=== PATIENT | female | born 1990 | race Caucasian/White ===

== ENCOUNTER 2020-01-17 14:54 | Outpatient (CLI) | payer MEDICAID, SELFPAY ==
[2020-01-17 16:36] LABS: HCG Quant, Pregnancy 495 mIU/mL (1-3); TSH 10.24 uIU/mL (0.36-3.74)
[2020-01-17 16:56] LABS: FREE T4 0.81 ng/dL (0.76-1.46)
== END 2020-01-17 15:14 ==
PROVIDERS: PCP Family Medicine; Visit Provider Nurse Practitioner Family
DX: E03.9 Hypothyroidism, unspecified (principal); N92.5 Other specified irregular menstruation
CPT/HCPCS: 36415; 84439; 84443; 84702

== ENCOUNTER 2020-03-09 12:15 | Outpatient (REF) | payer MEDICAID, SELFPAY ==
--- NOTE | 2020-03-09 10:45 | PAPFT_PTH ---
PATIENT: Libby Joseph LOC: [facility] U#:[id number] AGE/SX: 30/F ROOM: RE03/09/[address]: Humberto Roberson RN : 1990 BED: DIS: 03/09/2020 SPEC #: [id number] RECD: 03/09/20 16:37 STATUS: ARNIE TAVAREZ #: [id number] TUNDE: 03/09/20 10:[address]: Humberto Roberson DEPT: [facility] Cytology RECD BY: Franco Bloom Tissues: 1 - CX/ENDOCX FOR PAP SMEARS Procedures: PAP THIN PREP/UVM Screening Comments: [id number]
[2020-03-09 21:24] LABS: *AMPHETAMINES SCREEN URINE Negative (Negative); *BARBITURATES SCREEN URINE Negative (Negative); *BENZODIAZEPINES SCREEN URINE Negative (Negative); Cannabinoids THC Negative (Negative); Cocaine Screen,Urine Negative (Negative); METHADONE URINE SCREEN Negative (Negative); OPIATES URINE SCREEN Negative (Negative)
[2020-03-09 21:27] LABS: Tricyclic Antidepressants Negative (Negative)
[2020-03-11 14:41] LABS: Chlamydia Result Negative (Negative); GC Result Negative (Negative)
[2020-03-13 00:41] LABS: Buprenorphine Negative; Norbuprenorphine Negative
== END 2020-03-09 12:35 ==
LOC: LBN 12:15
PROVIDERS: Visit Provider Advanced Practice Midwife
DX: Z34.91 Encounter for supervision of normal pregnancy, unspecified, first trimester (principal); Z11.3 Encounter for screening for infections with a predominantly sexual mode of transmission; Z12.4 Encounter for screening for malignant neoplasm of cervix; R87.615 Unsatisfactory cytologic smear of cervix
CPT/HCPCS: 80307; 87491; 87591; 88142; 87086

== ENCOUNTER 2020-03-10 09:39 | Outpatient (REF) | payer MEDICAID, SELFPAY ==
[2020-03-10 09:59] LABS: Glucose,1 Hr (Glucola) 167 mg/dL (80-140)
[2020-03-10 10:01] LABS: Abs Immature Grans 0.03 k/cumm (0.0-0.09); Absolute Basophil Count 0.02 k/cumm (0.0-0.2); Absolute Eosinophil Count 0.13 k/cumm (0.0-0.7); Absolute Lymphocyte Count 1.48 k/cumm (1.2-3.4); Absolute Monocyte Count 0.31 k/cumm (0.11-0.7); Basophils % 0.3; Eosinophils % 1.7; HCT 38.3 % (36.0-46.0); Immature Grans % 0.4 %; Lymphocytes % 19.3; Mean Corp. HGB Concentration 33.9 g/dL (32.0-36.0); Mean Corpuscular Hemoglobin 30.5 pg (27.0-33.0); Mean Corpuscular Volume 89.9 fL (80-95); Mean Platelet Volume 11.5 fL (8.0-11.0); Neutrophils % 74.3; Platelet Count 237 x1000/uL (130-400); RBC 4.26 m/cumm (4.00-5.20); RBC Distribution Width 13.3 % (11.7-14.6); White Blood Cell Count 7.67 k/cumm (4.4-10.8)
[2020-03-10 10:28] LABS: ALT 45 U/L (14-59); AST 26 U/L (15-37); Albumin 3.5 g/dL (3.4-5.0); Alkaline Phosphatase 75 U/L (46-116); Bilirubin, Direct 0.06 mg/dL (0.00-0.20); Bilirubin, Total 0.2 mg/dL (0.2-1.0); TSH (W/Ref FT4) 4.36 uIU/mL (0.36-3.74); Total Protein 6.9 g/dL (6.4-8.2); Uric Acid 4.2 mg/dL (2.6-6.0)
[2020-03-10 10:56] LABS: FREE T4 0.74 ng/dL (0.76-1.46)
[2020-03-11 09:59] LABS: Hepatitis B Surface Ag Negative (Negative)
[2020-03-11 10:26] LABS: HIV-1/2 Ag & Ab Screen Negative (Negative); Hepatitis C Ab w Rflx HCV PCR Negative (Negative)
[2020-03-12 10:04] LABS: Syphilis Total Ab w/Reflex Nonreactive (Nonreactive)
[2020-03-13 12:09] LABS: Varicella IgG Antibody Positive (See Note)
[2020-03-13 12:14] LABS: Rubella IgG Ab (UVM) Positive (See Note)
== END 2020-03-10 09:59 ==
LOC: LBN 09:39
PROVIDERS: Visit Provider Advanced Practice Midwife
DX: Z34.91 Encounter for supervision of normal pregnancy, unspecified, first trimester (principal); Z11.59 Encounter for screening for other viral diseases; Z11.4 Encounter for screening for human immunodeficiency virus [HIV]; Z01.84 Encounter for antibody response examination
CPT/HCPCS: 80076; 82950; 86787; 86803; 86850; 86900; 86901; 87340; 87389; 84439; 84443; 84550; 85025; 86762; 86780

== ENCOUNTER 2020-03-17 07:52 | Outpatient (CLI) | payer MEDICAID, SELFPAY ==
[2020-03-17 10:13] LABS: Glucose 1 Hour 179 mg/dL
[2020-03-17 11:59] LABS: Glucose 3 Hour 128 mg/dL
--- NOTE | 2020-03-24 15:28 | DIABASSESS_ITS ---
Spoke with Libby by phone. Received referral from for nutritional counseling for Gestational Diabetes. Her KEEGAN 09/29/20. Her 1 hour glucose test (50 g) on 03/10/20 was 167mg/dl, has a BMI>30 and family hx of IDDM. recommended testing her blood sugars QID which she has been doing and reports that all her sugars are within therapeutic ranges provided by [facility]. 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 She reports that she drinks soda and eats convenience foods frequently but will reduce intake and will start exercise such as walking daily. She is going to send flex o writer operator a food and blood sugar log in the next week. Will send Gestational Diet guide to home address and follow up on weekly basis. Plan: 1. Follow 2200 kcal diabetic meal plan 2. Continue to log meals and BS levels as recommended and forward to flex o writer operator 3. will incorporate daily exercise such as walking 4.will reduce intake of simple carbs
== END 2020-03-17 08:12 ==
PROVIDERS: Visit Provider Advanced Practice Midwife
DX: Z34.91 Encounter for supervision of normal pregnancy, unspecified, first trimester (principal)
CPT/HCPCS: 82951

== ENCOUNTER 2020-04-28 00:28 | Outpatient (CLI) | payer MEDICAID, SELFPAY ==
--- NOTE | 2020-04-28 10:15 | DI.US_ITS ---
EXAM: US OB 2-3 TRIMESTER W MOD CLINICAL HISTORY: routine pnc, supervision normal , Z34.82 TECHNIQUE: Ultrasound performed using standard protocol. COMPARISON: No exams were available for comparison FINDINGS: Ob ultrasound was performed utilizing 2nd trimester protocol. biometry is consistent with gest ational age of 18 weeks 1 day and EDC of September 28, 2020. Placenta is posterior and low lying with apparent marginal placenta previa. Follow-up OB ultrasound requested at approximately 30 weeks gesta tional age to exclude significant placenta previa.There is a normal quantity of amniotic fluid. anomaly screen was incomplete, the patient is to return May 08 for completion of the sc reen. IMPRESSION: Marginal placenta previa, follow-up scan suggested approximately 30 weeks gestational age. Incomplete anomaly screen, repeat scan planned for May 08. DATA REPOSITORY: .
== END 2020-04-28 00:48 ==
PROVIDERS: PCP Family Medicine; Visit Provider Advanced Practice Midwife
DX: O44.42 Low lying placenta NOS or without hemorrhage, second trimester (principal); O44.22 Partial placenta previa NOS or without hemorrhage, second trimester; Z3A.18 18 weeks gestation of pregnancy
CPT/HCPCS: 76805

== ENCOUNTER 2020-04-28 00:58 | Outpatient (CLI) | payer MEDICAID, SELFPAY ==
[2020-04-28 12:51] LABS: Hemoglobin A1C 5.2 % (3.8-5.6)
[2020-04-28 13:13] LABS: TSH (W/Ref FT4) 3.72 uIU/mL (0.36-3.74)
[2020-04-30 11:25] LABS: AFP 39.6 ng/mL; Calculated age at EDD 28 years; Cigarette smoking status non-Smoker; GA used in risk estimate Scan estimate; IVF Pregnancy No; Initial or repeat testing Initial testing; Insulin dependent diabetes No; Maternal Weight 207 lbs; Number of Fetuses 1; Physician Phone Number 802-748-7300; Prev Pregnancy w/NTD No; RECOMMENDED FOLLOW UP None.; Results Summary Normal risk
--- NOTE | 2020-04-30 13:10 | DIABASSESS_ITS ---
Date of service: 04/28/20 Time of Service: 13:11 Diabetes Note NOTE: Met with Libby at [facility] today. 18 wks 0 day with Dx of GDM at 3 hour GTT. Has been taking BS QID and reports readings all wnl however has been eating very little due to pain. Her main concern today is pain when eating due to gall stones. Has appt at [facility] 04/30/20 for possible lap chol. Provided education on low fat foods. Encouraged Libby to follow up with me weekly with blood sugar and food record logs. Encouraged adequate fluid intake and eating small meals. Will be available prn. Time Spent in Nutritional Counseling and Treatment: 15 min spent face to face
== END 2020-04-28 01:18 ==
PROVIDERS: Advanced Practice Midwife; PCP Family Medicine; Visit Provider Advanced Practice Midwife
DX: O24.410 Gestational diabetes mellitus in pregnancy, diet controlled; Z36.89 Encounter for other specified antenatal screening; Z3A.18 18 weeks gestation of pregnancy
CPT/HCPCS: 36415; 82105; 83036; 84443

== ENCOUNTER 2020-05-08 00:42 | Outpatient (CLI) | payer MEDICAID, SELFPAY ==
--- NOTE | 2020-05-04 15:13 | W.DIABETESNO ---
Date of service: 05/04/20 Time of Service: 15:13 Diabetes Note NOTE: Lead Scientist called Libby to follow up on diet concerns with GDM, while awaiting [place] [facility] [place]. Libby reports meeting the surgeon last week who put her on an 800 calorie meal plan with maximum of 80-100 g carbohydrate, 80-100 g protein in order to shrink her liver prior to surgery. Fasting sugars running 70-80 mg/dl,post prandials < 120 mg/dl. Diet recall indicates that she has a protein shake for breakfast and dinner, sandwich with ww bread at lunch. She reports feeling tired, and dizzy at times due to hunger. I encouraged Libby to increase her calorie/carbohydrate intake as indicated in her Gestational Diabetes Packet provided to her and to follow her hunger cues. I encouraged her to continue to follow surgeons recommendations to reduce high calorie, high fat and high sugar foods and to focus on complex carbs, lean protein and non starchy vegetables and to continue to log her diet/blood sugars and bring to next visit. I will follow up in person at next [facility] visit. Time Spent in Nutritional Counseling and Treatment: 20 min
--- NOTE | 2020-05-08 | DI.US_ITS ---
EXAM: US OB F/U FACIAL/LVOT/RVOT CLINICAL HISTORY: F/U SURVEY, F/U CORD INSERT, NOSE, LIPS. TECHNIQUE: Transabdominal obstetrical ultrasound performed. COMPARISON: US US OB 2-3 TRIMESTER W MOD from 04/28/2020 FINDINGS: Transabdominal obstetrical ultrasound performed. FINDINGS: Number of fetuses: One. position: Cephalic heart rate: 145 bpm. Placental location: Posterior. The placental tip is 2.2 cm from the internal os. BIOMETRIC DATA: Heart Rate: 145BPM ANATOMICAL SURVEY: A four-chamber heart was visualized and is unremarkable. The nose, li ps and cord insertion site are unremarkable. IMPRESSION: Single live intrauterine gestation as above. DATA REPOSITORY:
--- NOTE | 2020-05-27 11:45 | W.DIABETESNO ---
Date of service: 05/27/20 Time of Service: 11:45 Diabetes Note NOTE: Spoke with Libby today. She is vacationing in [place] with family. She reports elevating fasting blood sugars for last couple of weeks- fasting levels 95-100 mg/dl. She reports post prandial levels to be wnl. Diet recall indicates high intakes of potatoes, corn and regular soda that are contributing to elevated BS. A1C (04/28/20) 5.2%. Discussed risks of having elevated blood sugars and to call [facility] if remain elevated. Time Spent in Nutritional Counseling and Treatment: 10 min spent counseling on phone
== END 2020-05-08 01:02 ==
PROVIDERS: PCP Family Medicine; Visit Provider Advanced Practice Midwife
DX: Z34.92 Encounter for supervision of normal pregnancy, unspecified, second trimester (principal); Z36.2 Encounter for other antenatal screening follow-up
CPT/HCPCS: 76815

== ENCOUNTER 2020-06-24 01:18 | Outpatient (CLI) | payer MEDICAID, SELFPAY ==
--- NOTE | 2020-06-24 06:30 | DI.US_ITS ---
EXAM: US OB IRIS WEIGHT CLINICAL HISTORY: GDM. Evaluate placenta location,O24.419. COMPARISON: US US OB 2-3 TRIMESTER W MOD from 04/28/2020 US US OB F/U FACIAL/LVOT/RVOT from 05/08/2020 TECHNIQUE: Transabdominal obstetrical ultrasound performed. FINDINGS: Sonographic images demonstrate a single intrauterine gestation in cephalic position. Plancenta:Posterior. Tip of the placenta measures 5.7 cm from the internal os. Predicted gestational age: 26+ 1 weeks Estimated date of delivery 29 September 2020: heart rate motion is Dopplered at: 139 BPM. BPD: 65mm = 26+ 1 weeks HC: 242mm = 26+ 2 weeks AC: 215mm = 26+ 0 weeks FL: 49mm = 26+ 2 weeks EFW: 897 Grams = 38 % Sonographically assessed composite gestational age: 26 weeks 1 day Estimated date of delivery based on this ultrasound is: 29 September 2020 Amniotic fluid index: 12.6 cm. Amount of fluid is within normal limits. IMPRESSION: size and weight are within the expected range . DATA REPOSITORY:
== END 2020-06-24 01:38 ==
PROVIDERS: PCP Family Medicine; Visit Provider Obstetrics & Gynecology
DX: Z34.92 Encounter for supervision of normal pregnancy, unspecified, second trimester (principal); O24.419 Gestational diabetes mellitus in pregnancy, unspecified control
CPT/HCPCS: 76816

== ENCOUNTER 2020-07-09 01:09 | Outpatient (CLI) | payer MEDICAID, SELFPAY ==
--- NOTE | 2020-07-09 09:00 | DI.US_ITS ---
EXAM: US OB IRIS WEIGHT CLINICAL HISTORY: Growth and IRIS, GESTATIONAL DIABETES, O24.419, Z84.82, Z34.90. TECHNIQUE: Transabdominal obstetrical ultrasound performed. COMPARISON: US US OB IRIS WEIGHT from 06/24/2020 FINDINGS: Transabdominal obstetrical ultrasound performed. FINDINGS: Number of fetuses: One. position: Cephalic Placental location: Posterior. No evidence of previa. BIOMETRIC DATA: EFW: 1188 grms 33% Composite Age: 28 weeks 3 days EDC: 09/28/2020 Heart Rate: 144BPM Amniotic fluid index: 12 cm. Visually, amount of fluid is within normal limits. IMPRESSION: 1. Single live intrauterine gestation as above. 2. Estimated weight is 1188gms. 3. Amniotic fluid index is 12 cm. Visually within normal limits. DATA REPOSITORY:
== END 2020-07-09 01:29 ==
PROVIDERS: PCP Family Medicine; Visit Provider Obstetrics & Gynecology
DX: O09.893 Supervision of other high risk pregnancies, third trimester (principal); O24.419 Gestational diabetes mellitus in pregnancy, unspecified control
CPT/HCPCS: 76816

== ENCOUNTER 2020-07-09 08:55 | Observation (INO) | payer MEDICAID, SELFPAY ==
[2020-07-09 09:33] LABS: Abs Immature Grans 0.06 10^3/uL (0.0-0.06); Absolute Basophil Count 0.03 10^3/uL (0.0-0.2); Absolute Lymphocyte Count 1.95 10^3/uL (1.2-3.4); Absolute Monocyte Count 0.34 10^3/uL (0.1-0.8); Absolute Neutrophil Count 6.42 10^3/uL (1.2-6.7); Basophils % 0.3; Eosinophils % 1.1; HCT 36.9 % (36.0-46.0); HGB 12.3 g/dL (11.2-15.7); Immature Grans % 0.7; Lymphocytes % 21.9; MCH 29.4 pg (27.0-33.0); MCHC 33.3 % (32.0-36.0); MCV 88.3 fL (80-95); Monocytes % 3.8; Neutrophils % 72.2; Nucleated RBC 0 %; Platelet Count 200 10^3/uL (130-400); RBC 4.18 10^6/uL (3.93-5.22); RDW 12.8 % (11.7-14.6); RDW-SD 41.1 fL
[2020-07-09 09:52] LABS: ALT 19 U/L (14-59); AST 12 U/L (15-37); Albumin 2.7 g/dL (3.4-5.0); Alkaline Phosphatase 94 U/L (46-116); Anion Gap 11.1 mmol/L (3-11); BUN 9 mg/dL (7-18); Bilirubin, Total 0.2 mg/dL (0.2-1.0); CO2 20.9 mmol/L (21.0-32.0); CREATININE 0.57 mg/dL (0.55-1.02); Calcium 8.7 mg/dL (8.5-10.1); Chloride 104 mmol/L (98-107); Glucose 97 mg/dL (74-106); Potassium 3.6 mmol/L (3.5-5.1); Sodium 136 mmol/L (136-145); TSH (W/Ref FT4) 4.83 uIU/mL (0.36-3.74); Total Protein 6.6 g/dL (6.4-8.2)
[2020-07-09 10:14] LABS: FREE T4 0.63 ng/dL (0.76-1.46)
[2020-07-09 10:18] LABS: PROTEIN 17.9 mg/dL
[2020-07-09 10:19] LABS: COMMENT (LAB VIEW ONLY) 158.98 mg/dL; Prot/Crea Ur Ratio 0.11
--- NOTE | 2020-07-20 14:23 | DIABASSESS_ITS ---
Date of service: 07/20/20 Time of Service: 14:23 Diabetes Note NOTE: Tried to contact Libby re: her GDM, but does not answer her phone x 2, unable to leave message. Will follow up when she is at [facility] visit. Time Spent in Nutritional Counseling and Treatment: 0 time spent
== END 2020-07-09 10:21 | disposition home or self-care (01) ==
PROVIDERS: Admitting Provider Obstetrics & Gynecology; PCP Family Medicine; Visit Provider Obstetrics & Gynecology
DX: Z03.79 Encounter for other suspected maternal and fetal conditions ruled out (principal); O99.283 Endocrine, nutritional and metabolic diseases complicating pregnancy, third trimester; E03.9 Hypothyroidism, unspecified; Z87.59 Personal history of other complications of pregnancy, childbirth and the puerperium
CPT/HCPCS: 36415; 80053; 82565; 84156; 84439; 84443; 85025; G0378

== ENCOUNTER 2020-07-23 15:53 | Outpatient (CLI) | payer MEDICAID, SELFPAY ==
[2020-07-23 16:07] LABS: Abs Immature Grans 0.07 10^3/uL (0.0-0.06); Absolute Basophil Count 0.04 10^3/uL (0.0-0.2); Absolute Eosinophil Count 0.19 10^3/uL (0.0-0.7); Absolute Lymphocyte Count 2.82 10^3/uL (1.2-3.4); Absolute Monocyte Count 0.61 10^3/uL (0.1-0.8); Absolute Neutrophil Count 6.35 10^3/uL (1.2-6.7); Basophils % 0.4; Eosinophils % 1.9; HCT 37.3 % (36.0-46.0); HGB 12.1 g/dL (11.2-15.7); Immature Grans % 0.7; MCH 28.9 pg (27.0-33.0); MCHC 32.4 % (32.0-36.0); MCV 89.2 fL (80-95); Monocytes % 6.1; Neutrophils % 62.9; Nucleated RBC 0 %; Platelet Count 202 10^3/uL (130-400); RBC 4.18 10^6/uL (3.93-5.22); RDW 12.8 % (11.7-14.6); RDW-SD 41.4 fL; WBC 10.08 10^3/uL (4.4-10.8)
[2020-07-23 16:30] LABS: ALT 16 U/L (14-59); AST 12 U/L (15-37); Albumin 2.8 g/dL (3.4-5.0); Alkaline Phosphatase 105 U/L (46-116); Anion Gap 11.3 mmol/L (3-11); BUN 10 mg/dL (7-18); Bilirubin, Total 0.2 mg/dL (0.2-1.0); CO2 20.7 mmol/L (21.0-32.0); CREATININE 0.62 mg/dL (0.55-1.02); Chloride 105 mmol/L (98-107); Glucose 96 mg/dL (74-106); Potassium 3.9 mmol/L (3.5-5.1); Sodium 137 mmol/L (136-145); TSH (W/Ref FT4) 5.51 uIU/mL (0.36-3.74); Total Protein 6.7 g/dL (6.4-8.2)
[2020-07-23 16:47] LABS: FREE T4 0.67 ng/dL (0.76-1.46)
== END 2020-07-23 16:13 ==
PROVIDERS: PCP Family Medicine; Visit Provider Obstetrics & Gynecology
DX: E03.9 Hypothyroidism, unspecified (principal); Z34.90 Encounter for supervision of normal pregnancy, unspecified, unspecified trimester
CPT/HCPCS: 36415; 80053; 82565; 84156; 84439; 84443; 85025

== ENCOUNTER 2020-07-23 19:07 | Outpatient (REF) | payer MEDICAID, SELFPAY ==
[2020-07-23 16:28] LABS: COMMENT (LAB VIEW ONLY) 131.67 mg/dL; PROTEIN 11.9 mg/dL; Prot/Crea Ur Ratio 0.09
== END 2020-07-23 19:27 ==
LOC: LBN 19:07
PROVIDERS: PCP Family Medicine; Visit Provider Obstetrics & Gynecology
DX: Z34.90 Encounter for supervision of normal pregnancy, unspecified, unspecified trimester (principal)
CPT/HCPCS: 82565; 84156

== ENCOUNTER 2020-07-25 12:42 | Outpatient (CLI) | payer MEDICAID, SELFPAY ==
[2020-07-25 12:50] VITALS: BP 124/82; PULSE 101; TEMP 36.7
--- NOTE | 2020-07-27 07:30 | W.OBNST ---
Date of service: 07/27/20 Time of Service: 07:30 NST Evaluation Reason for NST Reasons for Nonstress Test: GESTATIONAL HYPERTENSION Gestational Age Gestational Age in Weeks and Days: 30 Weeks and 4Days Test and Monitor Explained Test/Monitor Explained: Test Explained, Monitor Explained and Patient Verbalized Understanding Vital Signs Blood Pressure: 124/82 Pulse: 101 Temperature: 98.1 F NST Information Date on Monitor: 07/25/20 Time on Monitor: 12:50 Date off Monitor: 07/25/20 NST Interventions: None Contraction Frequency: none NST Evaluation Patient States Movement: Present FHR Baseline: 135 Variability: Moderate 6-25 bpm Accelerations: 15x15 Decelerations: None NST Results: Reactive Note NST Note Note: Category ! strip NST Reviewed and Verified by: Telma Chong
[2020-07-27 07:31] VITALS: BP 124/82; PULSE 101; TEMP 36.7
== END 2020-07-25 13:05 | disposition home or self-care (01) ==
LOC: BCD 12:42 → OBS 12:44
PROVIDERS: PCP Family Medicine; Visit Provider Obstetrics & Gynecology
DX: O13.3 Gestational [pregnancy-induced] hypertension without significant proteinuria, third trimester (principal); Z3A.30 30 weeks gestation of pregnancy
CPT/HCPCS: 59025

== ENCOUNTER 2020-07-27 19:45 | Observation (INO) | payer MEDICAID, SELFPAY ==
[2020-07-27 20:05] VITALS: BP 131/80; PULSE 94
[2020-07-27 20:25] VITALS: BP 131/80; PULSE 94; RESP 18; TEMP 36.7
== END 2020-07-27 21:00 | disposition home or self-care (01) ==
LOC: OBS 19:59
PROVIDERS: Admitting Provider Obstetrics & Gynecology; PCP Family Medicine; Visit Provider Obstetrics & Gynecology
DX: O60.03 Preterm labor without delivery, third trimester (principal); Z3A.30 30 weeks gestation of pregnancy
CPT/HCPCS: 85027; 86900; 86901; G0378

== ENCOUNTER 2020-07-31 14:12 | Outpatient (CLI) | payer MEDICAID, SELFPAY ==
[2020-07-31 14:19] VITALS: BP 119/85; PULSE 93; TEMP 36.7
[2020-07-31 14:36] VITALS: BP 119/85; PULSE 93
--- NOTE | 2020-07-31 15:10 | W.OBNST ---
Date of service: 07/31/20 Time of Service: 15:11 NST Evaluation Reason for NST Reasons for Nonstress Test: GESTATIONAL HYPERTENSION Gestational Age Gestational Age in Weeks and Days: 30 Weeks and 4Days Test and Monitor Explained Test/Monitor Explained: Test Explained, Monitor Explained and Patient Verbalized Understanding NST Information Date on Monitor: 07/31/20 NST Interventions: None NST Evaluation Patient States Movement: Present FHR Baseline: 140 Accelerations: 15x15 and None Decelerations: None NST Results: Reactive Note NST Note NST Reviewed and Verified by: Annemarie Burroughs
--- NOTE | 2020-08-03 07:43 | W.OBNST ---
Date of service: 08/03/20 Time of Service: 07:44 NST Evaluation Reason for NST Reasons for Nonstress Test: GESTATIONAL HYPERTENSION Gestational Age Gestational Age in Weeks and Days: 30 Weeks and 4Days Test and Monitor Explained Test/Monitor Explained: Test Explained, Monitor Explained and Patient Verbalized Understanding Vital Signs Blood Pressure: 119/85 Pulse: 93 Temperature: 98.1 F NST Information Date on Monitor: 07/31/20 Time on Monitor: 13:00 NST Interventions: PO Hydration NST Evaluation Patient States Movement: Present FHR Baseline: 140 Variability: Moderate 6-25 bpm Accelerations: 15x15 Decelerations: None NST Results: Reactive Note NST Note NST Reviewed and Verified by: Star Stoner
[2020-08-03 07:44] VITALS: BP 119/85; PULSE 93; TEMP 36.7
== END 2020-07-31 15:14 | disposition home or self-care (01) ==
LOC: BCD 14:13 → OBS 14:17
PROVIDERS: PCP Family Medicine; Visit Provider Obstetrics & Gynecology Gynecology
DX: O13.3 Gestational [pregnancy-induced] hypertension without significant proteinuria, third trimester (principal); Z3A.30 30 weeks gestation of pregnancy
CPT/HCPCS: 59025

== ENCOUNTER 2020-08-04 01:01 | Outpatient (CLI) | payer MEDICAID, SELFPAY ==
--- NOTE | 2020-08-04 08:00 | DI.US_ITS ---
EXAM: US OB IRIS WEIGHT CLINICAL HISTORY: Growth and IRIS at 32 weeks,GEST DIABETES,O24.419,Z34.82,Z34.90. TECHNIQUE: Transabdominal obstetrical ultrasound performed. COMPARISON: US US OB IRIS WEIGHT from 07/09/2020 FINDINGS:: Number of fetuses: One. position: Vertex. Placental location: Posterior. No evidence of previa. BIOMETRIC DATA: BPD: 80mm = 32+1 weeks HC: 294mm = 32+3 weeks AC: 284mm = 32+3 weeks FL: 62 mm = 32+2 weeks EFW: 1962 Gms = 51 % Composite Age: 32+2 EDC: 27 September 2020 Heart Rate: 141BPM Amniotic fluid index: 13 cm. Amount of fluid is within normal limits. IMPRESSION: size and weight are within the expected range. DATA REPOSITORY:
== END 2020-08-04 01:21 ==
PROVIDERS: PCP Family Medicine; Visit Provider Obstetrics & Gynecology
DX: O24.414 Gestational diabetes mellitus in pregnancy, insulin controlled (principal); Z79.4 Long term (current) use of insulin
CPT/HCPCS: 76816

== ENCOUNTER 2020-08-06 13:26 | Outpatient (CLI) | payer MEDICAID, SELFPAY ==
[2020-08-06] VITALS (10 sets, daily range): BP systolic 116–155; BP diastolic 72–93; PULSE 85–109; TEMP 36.2
[2020-08-06 16:43] LABS: HCT 34.5 % (36.0-46.0); HGB 11.6 g/dL (11.2-15.7); MCH 29.7 pg (27.0-33.0); MCHC 33.6 % (32.0-36.0); MCV 88.2 fL (80-95); MPV 12.4 fL (8.0-11.0); Platelet Count 187 10^3/uL (130-400); RBC 3.91 10^6/uL (3.93-5.22); RDW 13.1 % (11.7-14.6); RDW-SD 42.2 fL; WBC 10.93 10^3/uL (4.4-10.8)
[2020-08-06 17:00] LABS: ALT 16 U/L (14-59); AST 12 U/L (15-37); Albumin 2.6 g/dL (3.4-5.0); Alkaline Phosphatase 114 U/L (46-116); Anion Gap 12.6 mmol/L (3-11); BUN 9 mg/dL (7-18); Bilirubin, Total 0.2 mg/dL (0.2-1.0); CO2 20.4 mmol/L (21.0-32.0); CREATININE 0.58 mg/dL (0.55-1.02); Calcium 9.3 mg/dL (8.5-10.1); Chloride 104 mmol/L (98-107); Glucose 119 mg/dL (74-106); Potassium 3.2 mmol/L (3.5-5.1); Sodium 137 mmol/L (136-145); Total Protein 6.5 g/dL (6.4-8.2); Uric Acid 5.4 mg/dL (2.6-6.0)
[2020-08-06 17:38] LABS: PROTEIN 20.1 mg/dL
[2020-08-06 17:51] LABS: COMMENT (LAB VIEW ONLY) 113.39 mg/dL; Prot/Crea Ur Ratio 0.17
[2020-08-11 15:35] VITALS: BP 144/89; PULSE 102; TEMP 36.2
--- NOTE | 2020-08-11 15:35 | W.OBNST ---
Date of service: 08/06/20 Time of Service: 15:35 NST Evaluation Reason for NST Reasons for Nonstress Test: GESTATIONAL HYPERTENSION Gestational Age Gestational Age in Weeks and Days: 32 Weeks and 4Days Test and Monitor Explained Test/Monitor Explained: Test Explained, Monitor Explained and Patient Verbalized Understanding Vital Signs Blood Pressure: 144/89 Pulse: 102 Temperature: 97.2 F Urine Results Urine Protein: Negative Urine Ketones: Negative Urine Glucose: Negative Urine Blood: Negative NST Information Date on Monitor: 08/06/20 Time on Monitor: 15:05 Date off Monitor: 08/06/20 Time off Monitor: 17:10 Total Time on Monitor: 125 NST Interventions: PO Hydration Contraction Frequency: none NST Evaluation Patient States Movement: Present FHR Baseline: 135 Variability: Moderate 6-25 bpm Accelerations: 15x15 Decelerations: None NST Results: Reactive Note NST Note Note: Reactive NST NST Reviewed and Verified by: Star Stoner
[2020-10-04 06:48] VITALS: BP 144/89; PULSE 102; TEMP 36.2
--- NOTE | 2020-10-04 06:48 | W.OBNST ---
Date of service: 08/06/20 Time of Service: 06:48 NST Evaluation Reason for NST Reasons for Nonstress Test: GESTATIONAL HYPERTENSION Gestational Age Gestational Age in Weeks and Days: 37 Weeks and 2Days Test and Monitor Explained Test/Monitor Explained: Test Explained, Monitor Explained and Patient Verbalized Understanding Vital Signs Blood Pressure: 144/89 Pulse: 102 Temperature: 97.2 F Urine Results Urine Protein: Negative Urine Ketones: Negative Urine Glucose: Negative Urine Blood: Negative NST Information Date on Monitor: 08/06/20 Time on Monitor: 15:05 Date off Monitor: 08/06/20 Time off Monitor: 17:10 Total Time on Monitor: 125 NST Interventions: PO Hydration Contraction Frequency: none NST Evaluation Patient States Movement: Present FHR Baseline: 135 Variability: Moderate 6-25 bpm Accelerations: 15x15 Decelerations: None NST Results: Reactive Note NST Note NST Reviewed and Verified by: Star Stoner
== END 2020-08-06 17:15 | disposition home or self-care (01) ==
LOC: BCD 13:33 → OBS 15:01
PROVIDERS: PCP Family Medicine; Visit Provider Obstetrics & Gynecology
DX: O13.3 Gestational [pregnancy-induced] hypertension without significant proteinuria, third trimester (principal); Z3A.32 32 weeks gestation of pregnancy
CPT/HCPCS: 59025; 80053; 85027; 86850; 86900; 86901; 82565; 84156; 84550

== ENCOUNTER 2020-08-08 12:43 | Outpatient (CLI) | payer MEDICAID, SELFPAY ==
[2020-08-08 12:51] VITALS: BP 128/81; PULSE 104; TEMP 36.8
[2020-08-08 13:10] VITALS: BP 128/81; PULSE 104
[2020-08-10 07:45] VITALS: BP 128/81; PULSE 104; TEMP 36.8
--- NOTE | 2020-08-10 07:45 | W.OBNST ---
Date of service: 08/10/20 Time of Service: 07:45 NST Evaluation Reason for NST Reasons for Nonstress Test: GESTATIONAL HYPERTENSION Gestational Age Gestational Age in Weeks and Days: 32 Weeks and 4Days Test and Monitor Explained Test/Monitor Explained: Test Explained, Monitor Explained and Patient Verbalized Understanding Vital Signs Blood Pressure: 128/81 Pulse: 104 Temperature: 98.2 F NST Information Date on Monitor: 08/08/20 Time on Monitor: 12:50 Date off Monitor: 08/08/20 Time off Monitor: 13:22 Total Time on Monitor: 32 NST Interventions: None NST Evaluation Patient States Movement: Present FHR Baseline: 125 Variability: Moderate 6-25 bpm Accelerations: 15x15 NST Results: Reactive Note NST Note Note: Category 1 strip. Normal BP. Follow up as scheduled NST Reviewed and Verified by: Telma Chong
== END 2020-08-08 14:00 | disposition home or self-care (01) ==
LOC: BCD 12:47 → OBS 12:49
PROVIDERS: PCP Family Medicine; Visit Provider Obstetrics & Gynecology
DX: O13.3 Gestational [pregnancy-induced] hypertension without significant proteinuria, third trimester (principal); Z3A.32 32 weeks gestation of pregnancy
CPT/HCPCS: 59025

== ENCOUNTER 2020-08-12 13:49 | Outpatient (CLI) | payer MEDICAID, SELFPAY ==
[2020-08-12 15:36] VITALS: BP 117/87; PULSE 110; TEMP 37
[2020-08-12 15:45] VITALS: BP 117/87; PULSE 110
[2020-08-12 16:18] VITALS: BP 136/87; PULSE 87
--- NOTE | 2020-08-12 16:30 | W.OBNST ---
Date of service: 08/12/20 Time of Service: 16:31 NST Evaluation Reason for NST Reasons for Nonstress Test: OTHER, SEE COMMENT Gestational Age Gestational Age in Weeks and Days: 33 Weeks and 1Days Test and Monitor Explained Test/Monitor Explained: Test Explained, Monitor Explained and Patient Verbalized Understanding Vital Signs Blood Pressure: 136/87 Pulse: 87 Temperature: 98.6 F NST Information Date on Monitor: 08/12/20 Time on Monitor: 15:40 Date off Monitor: 08/12/20 Time off Monitor: 16:18 Total Time on Monitor: 38 NST Interventions: PO Hydration Contraction Frequency: 0 NST Evaluation Patient States Movement: Present FHR Baseline: 145 Variability: Moderate 6-25 bpm Accelerations: 15x15 Decelerations: Variable NST Results: Reactive Note NST Note Note: Category 1 strip, normal pressure, cervix closed per nursing NST Reviewed and Verified by: Telma Chong
[2020-08-12 16:31] VITALS: BP 136/87; PULSE 87; TEMP 37
== END 2020-08-12 16:30 | disposition home or self-care (01) ==
LOC: BCD 13:50 → OBS 13:55
PROVIDERS: PCP Family Medicine; Visit Provider Obstetrics & Gynecology
DX: R51.9 Headache, unspecified (principal); O26.893 Other specified pregnancy related conditions, third trimester; O60.03 Preterm labor without delivery, third trimester; Z3A.33 33 weeks gestation of pregnancy
CPT/HCPCS: 59025

== ENCOUNTER 2020-08-18 13:23 | Outpatient (CLI) | payer MEDICAID, SELFPAY ==
[2020-08-18 16:09] VITALS: BP 110/71; PULSE 110
[2020-08-18 16:19] VITALS: BP 117/78; PULSE 107
[2020-08-18 16:29] VITALS: BP 117/79; PULSE 98
[2020-08-18 16:39] VITALS: BP 123/81; PULSE 104; RESP 20; TEMP 36.9
[2020-08-18 16:40] VITALS: BP 123/81; PULSE 104; TEMP 36.9
--- NOTE | 2020-08-18 16:52 | NUR.NOTE ---
At 1615: pt denies headache outside her usual, denies RUQ pain. States peyton has started moving since she arrived but had decreased movement this AM. DTR's 1+. No visual changes reported.
--- NOTE | 2020-10-04 06:46 | W.OBNST ---
Date of service: 08/18/20 Time of Service: 16:00 NST Evaluation Reason for NST Reasons for Nonstress Test: DECREASED MOVEMENT and GESTATIONAL HYPERTENSION Gestational Age Gestational Age in Weeks and Days: 37 Weeks and 2Days Test and Monitor Explained Test/Monitor Explained: Test Explained, Monitor Explained and Patient Verbalized Understanding Vital Signs Blood Pressure: 123/81 Pulse: 104 Temperature: 98.5 F NST Information Date on Monitor: 08/18/20 Time on Monitor: 16:05 Date off Monitor: 08/18/20 Time off Monitor: 16:43 Total Time on Monitor: 38 NST Interventions: None Contraction Frequency: None NST Evaluation Patient States Movement: Present FHR Baseline: 150 Variability: Moderate 6-25 bpm Accelerations: 15x15 Decelerations: None NST Results: Reactive Note NST Note NST Reviewed and Verified by: Star Stoner
[2020-10-04 06:47] VITALS: BP 123/81; PULSE 104; TEMP 36.9
== END 2020-08-18 16:45 | disposition home or self-care (01) ==
LOC: BCD 13:25 → OBS 13:33 → BCD 13:35 → OBS 16:21
PROVIDERS: PCP Family Medicine; Visit Provider Obstetrics & Gynecology
DX: O36.8130 Decreased fetal movements, third trimester, not applicable or unspecified (principal); O13.3 Gestational [pregnancy-induced] hypertension without significant proteinuria, third trimester; Z3A.34 34 weeks gestation of pregnancy
CPT/HCPCS: 59025

== ENCOUNTER 2020-08-20 09:04 | Outpatient (CLI) | payer MEDICAID, SELFPAY | END 2020-08-20 09:24 | PROVIDERS: PCP Family Medicine; Visit Provider Obstetrics & Gynecology | DX: R69 Illness, unspecified (principal) ==

== ENCOUNTER 2020-08-24 03:54 | Outpatient (CLI) | payer MEDICAID, SELFPAY ==
[2020-08-24 15:18] LABS: FREE T4 0.61 ng/dL (0.76-1.46)
--- NOTE | 2020-10-04 06:45 | W.OBNST ---
Date of service: 10/04/20 Time of Service: 06:45 NST Evaluation Gestational Age Gestational Age in Weeks and Days: 37 Weeks and 2Days NST Evaluation Patient States Movement: Present Variability: Moderate 6-25 bpm Accelerations: 15x15 NST Results: Reactive Note NST Note NST Reviewed and Verified by: Star Stoner
== END 2020-08-24 04:14 ==
PROVIDERS: PCP Family Medicine; Visit Provider Obstetrics & Gynecology Gynecology
DX: E03.9 Hypothyroidism, unspecified (principal)
CPT/HCPCS: 36415; 59025; 84439; 84443

== ENCOUNTER 2020-08-24 14:02 | Outpatient (CLI) | payer MEDICAID, SELFPAY ==
[2020-08-24 15:06] VITALS: BP 128/81; PULSE 103; TEMP 36.8
[2020-09-14 09:28] VITALS: BP 128/81; PULSE 103; TEMP 36.8
--- NOTE | 2020-09-14 09:28 | W.OBNST ---
Date of service: 08/24/20 Time of Service: 09:28 NST Evaluation Reason for NST Reasons for Nonstress Test: GDM-DIET CONTROLLED Gestational Age Gestational Age in Weeks and Days: 37 Weeks and 2Days Test and Monitor Explained Test/Monitor Explained: Test Explained, Monitor Explained and Patient Verbalized Understanding Vital Signs Blood Pressure: 128/81 Pulse: 103 Temperature: 98.2 F NST Information Date on Monitor: 08/24/20 Time on Monitor: 14:16 Date off Monitor: 08/24/20 Time off Monitor: 14:47 Total Time on Monitor: 31 NST Interventions: None Contraction Frequency: 0 NST Evaluation Patient States Movement: Present FHR Baseline: 145 Variability: Moderate 6-25 bpm Accelerations: 15x15 Decelerations: None NST Results: Reactive Note NST Note NST Reviewed and Verified by: Star Stoner
== END 2020-08-24 14:55 | disposition home or self-care (01) ==
LOC: BCD 14:11 → OBS 14:22
PROVIDERS: PCP Family Medicine; Visit Provider Obstetrics & Gynecology
DX: O24.410 Gestational diabetes mellitus in pregnancy, diet controlled (principal); Z3A.37 37 weeks gestation of pregnancy
CPT/HCPCS: 59025

== ENCOUNTER 2020-08-27 08:16 | Outpatient (CLI) | payer MEDICAID, SELFPAY ==
[2020-08-27 14:04] VITALS: BP 126/76; PULSE 103; TEMP 37.3
[2020-08-28 11:05] VITALS: BP 118/67; PULSE 84
[2020-10-15 17:09] VITALS: BP 126/76; PULSE 103; TEMP 37.3
--- NOTE | 2020-10-15 17:09 | W.OBNST ---
Date of service: 10/15/20 Time of Service: 17:09 NST Evaluation Reason for NST Reasons for Nonstress Test: GESTATIONAL HYPERTENSION Gestational Age Gestational Age in Weeks and Days: 37 Weeks and 2Days Test and Monitor Explained Test/Monitor Explained: Patient Verbalized Understanding Vital Signs Blood Pressure: 126/76 Pulse: 103 Temperature: 99.1 F NST Information Date on Monitor: 08/27/20 Time on Monitor: 14:10 Date off Monitor: 08/27/20 Time off Monitor: 14:43 Total Time on Monitor: 33 NST Interventions: None NST Evaluation Patient States Movement: Present FHR Baseline: 140 Variability: Moderate 6-25 bpm Accelerations: 15x15 Decelerations: None NST Results: Reactive Note NST Note Note: Reactive NST. NST Reviewed and Verified by: Annemarie Burroughs
== END 2020-08-27 14:47 | disposition home or self-care (01) ==
LOC: BCD 08:18 → OBS 14:00
PROVIDERS: PCP Family Medicine; Visit Provider Obstetrics & Gynecology Gynecology
DX: O13.3 Gestational [pregnancy-induced] hypertension without significant proteinuria, third trimester (principal); Z3A.37 37 weeks gestation of pregnancy
CPT/HCPCS: 59025

== ENCOUNTER 2020-08-27 16:03 | Outpatient (REF) | payer MEDICAID, SELFPAY ==
[2020-08-27 17:23] LABS: *AMPHETAMINES SCREEN URINE Negative (Negative); *BARBITURATES SCREEN URINE Negative (Negative); *BENZODIAZEPINES SCREEN URINE Negative (Negative); Cannabinoids THC Negative (Negative); Cocaine Screen,Urine Negative (Negative); METHADONE URINE SCREEN Negative (Negative); OPIATES URINE SCREEN Negative (Negative)
[2020-08-27 17:47] LABS: Tricyclic Antidepressants Negative (Negative)
[2020-09-03 10:47] LABS: Buprenorphine Negative; Norbuprenorphine Negative
== END 2020-08-27 16:23 ==
LOC: LBN 16:03
PROVIDERS: PCP Family Medicine; Visit Provider Obstetrics & Gynecology Gynecology
DX: Z34.93 Encounter for supervision of normal pregnancy, unspecified, third trimester (principal); Z36.85 Encounter for antenatal screening for Streptococcus B; Z3A.35 35 weeks gestation of pregnancy
CPT/HCPCS: 80307; 87081

== ENCOUNTER 2020-08-31 09:36 | Outpatient (CLI) | payer MEDICAID, SELFPAY ==
[2020-08-31 14:13] VITALS: BP 148/96; PULSE 96; TEMP 36.7
[2020-08-31 14:17] VITALS: BP 148/96; PULSE 96
[2020-08-31 14:54] VITALS: BP 150/91; PULSE 87
[2020-08-31 15:05] VITALS: BP 140/85; PULSE 93
--- NOTE | 2020-08-31 15:27 | W.OBNST ---
Date of service: 08/31/20 Time of Service: 15:27 NST Evaluation Reason for NST Reasons for Nonstress Test: GDM-DIET CONTROLLED Gestational Age Gestational Age in Weeks and Days: 35 Weeks and 6Days Test and Monitor Explained Test/Monitor Explained: Test Explained, Monitor Explained and Patient Verbalized Understanding Vital Signs Blood Pressure: 148/96 Pulse: 96 Temperature: 98.1 F NST Information Date on Monitor: 08/31/20 Time on Monitor: 14:14 Date off Monitor: 08/31/20 Time off Monitor: 15:08 Total Time on Monitor: 54 NST Evaluation Patient States Movement: Present FHR Baseline: 135 Variability: Moderate 6-25 bpm Accelerations: 15x15 Decelerations: None NST Results: Reactive Note NST Note Note: Category 1 strip. Cervix fingertip, 50%, -2 station NST Reviewed and Verified by: Telma Chong
[2020-08-31 15:28] VITALS: BP 148/96; PULSE 96; TEMP 36.7
== END 2020-08-31 15:10 | disposition home or self-care (01) ==
LOC: BCD 09:38 → OBS 14:07
PROVIDERS: PCP Family Medicine; Visit Provider Obstetrics & Gynecology
DX: O24.410 Gestational diabetes mellitus in pregnancy, diet controlled (principal); Z3A.35 35 weeks gestation of pregnancy
CPT/HCPCS: 59025

== ENCOUNTER 2020-09-01 09:28 | Outpatient (CLI) | payer MEDICAID, SELFPAY ==
--- NOTE | 2020-09-01 09:15 | DI.US_ITS ---
EXAM: US OB IRIS WEIGHT CLINICAL HISTORY: GRowth and IRIS at 36 weeks,z34.82,gest diabetes TECHNIQUE: Ultrasound performed using standard protocol. COMPARISON: US US OB IRIS WEIGHT from 08/04/2020 FINDINGS: Ob ultrasound was performed utilizing 3rd trimester protocol. biometry is consistent with gest ational age of 35 weeks 6 days and EDC of September 30. The estimated weight is 2762 grams which is at the 44th percentile for predicted gestational ag e. Placenta is posterior with no evidence of placenta previa. There is visually a normal quantity of amniotic fluid and the IRIS is 17. Fetus is in cephalic presentation. IMPRESSION: DATA REPOSITORY:
== END 2020-09-01 09:48 ==
PROVIDERS: PCP Family Medicine; Visit Provider Obstetrics & Gynecology
DX: Z34.83 Encounter for supervision of other normal pregnancy, third trimester (principal); O24.419 Gestational diabetes mellitus in pregnancy, unspecified control
CPT/HCPCS: 76816

== ENCOUNTER 2020-09-03 09:14 | Outpatient (CLI) | payer MEDICAID, SELFPAY ==
[2020-09-03 14:15] VITALS: BP 132/96; PULSE 122; TEMP 36.6
[2020-09-03 14:19] VITALS: BP 132/96; PULSE 122
--- NOTE | 2020-09-03 15:24 | W.OBNST ---
Date of service: 09/03/20 Time of Service: 15:24 NST Evaluation Reason for NST Reasons for Nonstress Test: GDM-DIET CONTROLLED Gestational Age Gestational Age in Weeks and Days: 36 Weeks and 2Days Test and Monitor Explained Test/Monitor Explained: Test Explained, Monitor Explained and Patient Verbalized Understanding Vital Signs Blood Pressure: 132/96 Pulse: 122 Temperature: 97.9 F NST Information Date on Monitor: 09/03/20 Time on Monitor: 14:18 Date off Monitor: 09/03/20 Time off Monitor: 14:46 Total Time on Monitor: 28 NST Interventions: None Contraction Frequency: none NST Evaluation Patient States Movement: Present FHR Baseline: 145 Variability: Moderate 6-25 bpm Accelerations: 15x15 Decelerations: None NST Results: Reactive Note NST Note Note: Category 1 nonstress test. NST Reviewed and Verified by: Telma Chong
[2020-09-03 15:25] VITALS: BP 132/96; PULSE 122; TEMP 36.6
== END 2020-09-03 14:45 | disposition home or self-care (01) ==
LOC: BCD 09:17 → OBS 13:39
PROVIDERS: PCP Family Medicine; Visit Provider Obstetrics & Gynecology Gynecology
DX: O24.410 Gestational diabetes mellitus in pregnancy, diet controlled (principal); Z3A.36 36 weeks gestation of pregnancy
CPT/HCPCS: 59025

== ENCOUNTER 2020-09-07 07:15 | Outpatient (CLI) | payer MEDICAID, SELFPAY ==
[2020-09-07 09:44] VITALS: BP 122/88; PULSE 118; TEMP 36.4
[2020-09-07 09:48] VITALS: BP 122/88; PULSE 118
--- NOTE | 2020-09-07 10:39 | W.OBNST ---
Date of service: 09/07/20 Time of Service: 10:39 NST Evaluation Reason for NST Reasons for Nonstress Test: GDM-DIET CONTROLLED Gestational Age Gestational Age in Weeks and Days: 36 Weeks and 6Days Test and Monitor Explained Test/Monitor Explained: Test Explained, Monitor Explained and Patient Verbalized Understanding Vital Signs Blood Pressure: 122/88 Pulse: 118 Temperature: 97.5 F NST Information Date on Monitor: 09/07/20 Time on Monitor: 09:42 Date off Monitor: 09/07/20 Time off Monitor: 10:05 Total Time on Monitor: 23 NST Interventions: None NST Evaluation Patient States Movement: Present FHR Baseline: 150 Variability: Moderate 6-25 bpm Accelerations: 15x15 Decelerations: None NST Results: Reactive Note NST Note Note: Category 1 strip SVE FT 70% NST Reviewed and Verified by: Telma Chong
[2020-09-07 10:40] VITALS: BP 122/88; PULSE 118; TEMP 36.4
== END 2020-09-07 10:10 | disposition home or self-care (01) ==
LOC: OBSERV 07:16 → OBS 09:43
PROVIDERS: PCP Family Medicine; Visit Provider Obstetrics & Gynecology
DX: O24.410 Gestational diabetes mellitus in pregnancy, diet controlled (principal); Z3A.36 36 weeks gestation of pregnancy
CPT/HCPCS: 59025

== ENCOUNTER 2020-09-10 15:01 | Inpatient (IN) | payer MEDICAID, SELFPAY ==
[2020-09-10] VITALS (13 sets, daily range): BP systolic 123–173; BP diastolic 82–108; PULSE 82–110; RESP 20; TEMP 36.5–36.6
--- NOTE | 2020-09-10 14:49 | HPE_ITS ---
Date of service: 09/10/20 Time of Service: 14:49 Assessment and Plan Assessment and plan (1) High-risk in third trimester: Status: Acute Assessment and plan: Patient is a 3 para 2 at 37 and 1 weeks today. She is presented to the center for routine nonstress test was found to have significant elevated blood pressure. Her blood pressures been monitored throughout her particularly in the last few weeks. Due to her significant elevation with blood pressures ranging 160s 170s over 90s to 100s the decision was made for labor induction. Baseline laboratory studies are being performed IV is being started and we will decide on mode of induction with cervical ripening versus Pitocin. Pediatrics will be notified. She will have antihypertensive medications as needed, magnesium sulfate for seizure prophylaxis as indicated. (2) Gestational diabetes: Status: Acute Assessment and plan: Monitor her blood sugars throughout the course of her labor (3) Gestational hypertension: Status: Acute Assessment and plan: Labor induction at 37 weeks and 1 day. Antihypertensives as necessary. Magnesium sulfate for seizure prophylaxis as warranted. OB-HPI Labor/Delivery History of Present Illness Reason for Visit: NST Chief Complaint: Other (Nonstress test, elevated blood pressure). KEEGAN Calculator Estimated Delivery Date Method Current WG Current Estimate 09/29/20 Ultrasound #1 37w 2d Other Estimates 09/20/20 LMP (Uncertain) 38w 4d 10/02/20 Ultrasound #2 36w 6d History of Present Expected Delivery Route/Plan - CNM, transfer to [facility] care for GDM 06/02 FOB: Jaquan Schultz (His first child) Specific Issues/Plan 1. BMI > 30. 1a. Early 1 - hr GTT 167 5/5 - 3-hr GTT 95/179/161/128, 1b. Regarding pt as GDM @ 18 wks, will continue QID monitoring at home, 1c. 06/21/20. Nl CBGs QID 2nd trimester . 08/20/2020 discontinued at 34 weeks EGA 2. H/O pre eclampsia thus accepts recommendation of low dose ASA, will initiate @ 12 weeks.. 5. Pt does not know if she was tested for CF. 11/20/2019 no CF testing and records 6. Hypothyroid - TSH 4.37, T4 - .74. - Consult with Dr. Stoner, levothyroxine increased to 75 mcg, Repeat @ 15 wks 6a. TSH drawn @ 18 wks: 3.72; free T4 and TPO ordered (add-on) 08/27/20 TSH 4.5. Levoxyl increased to 150mcg 7. 03/20/20: Pap: QNS. Repeat PAP 6 wks 8. [facility] [place] Laproscopic cholecystectomy scheduled on 05/14/20, @ 16w EGA. No sequelae. 9. Posterior marginal placenta previa noted at 18 wk ultrasound. 06/17/20 placenta tip 5.7 from os 11. Pruritic rash on abdomen- appears to be dermatitis related to surgical treatment - triamcinolone BID and benadryl PRN Assessment: History Reviewed & Current Narrative: Patient is a 89-ulln-heu-year-old with history of 2 previous vaginal deliveries. [facility] her has been complicated by gestational diabetes. She has been in surveillance for which she presents today with also elevated blood pressures. Blood pressure on initial presentation was 170/1 100s. Repeat 160s over 90s. Due to the fact that she is late with elevated blood pressures and diabetes decision was made for labor induction. She is having occasional irregular contractions on the monitor. She has a category 1 heart rate tracing. She has chronic headaches which is no different for her today. She denies upper abdominal or epigastric discomfort. Her swelling has been consistent, not increased. Informed Consent Informed Consent: Induction of Labor Review of Systems All systems reviewed & are unremarkable except as noted in HPI and below Constitutional Constitutional: Reports as per HPI, Denies anorexia, Denies fever(s) and Denies malaise Eyes Eyes: Reports as per HPI Cardiovascular Cardiovascular: Reports system reviewed and no additional complaints, except as documented and Denies dyspnea Respiratory Respiratory: Reports system reviewed and no additional complaints, except as documented, Denies cough and Denies dyspnea Gastrointestinal Gastrointestinal: Reports system reviewed and no additional complaints, except as documented Genitourinary Genitourinary: Reports as per HPI Musculoskeletal Musculoskeletal: Reports system reviewed and no additional complaints, except as documented Integumentary/Breasts Skin/Breast: Reports system reviewed and no additional complaints, except as documented Neurologic Neurologic: Reports system reviewed and no additional complaints, except as documented Psychiatric Psychiatric: Reports system reviewed and no additional complaints, except as documented [facility] Medical History Anxiety Cholelithiasis Hypothyroid Seizure disorder as child age 15/14 tx w/ meds d/c'd @ age 19. none again until labor with 2nd l&d. Unsatisfactory cervical Papanicolaou smear Unsat pap 03/09/20 - repeat at 6 wks PP Surgical History History of laparoscopy removal of endometriosis, day surgery @ [facility] w/o c/o. Family History Father Diabetes Heart disease Mother Migraine Maternal Grandmother Diabetes Maternal Grandfather Heart disease Colon cancer Hypertension Social History Smoking/Tobacco Use Status: Never Second Hand Exposure: No Smoking risk assessment performed?: Yes Alcohol Intake: never Drug use: Never History History 3 Para 2 Hx # Term Pregnancies 2 Multiple births 0 Hx # Pregnancies 0 Ectopic pregnancies 0 AB induced 0 Hx Number of Living Children 2 AB spontaneous Past Pregnancies Del. Date GA/Weeks # Outcome Route Wgt Sex Labor Lgth Anesthes ia Location Prov Compl 09/10/11 40 No Successful vaginal 7 lb 9 oz Male iol for pre-e. [facility] 04/13/14 38 No Successful vaginal 8 lb 2 oz Female x 5hrs [facility] Delivery Date: 09/10/11 iol for pre-e, x 2 days. w/o c/o. MARILUZ TUCKER Delivery Date: 04/13/14 rom w/ ucs yet augmentation was recommended. Tachysystole then pitocin d/c'd Vacuum caused significant abrasion thus ointment needed & tylenol. ? seizure activity tx. w/ observation and [facility] nicu x3 days on eeg monitor then d/c to home. no meds. MARILUZ TUCKER [facility] Home Medications and Allergies Home Medications Medication Instructions Recorded Confirmed Type bupropion HCl 450 mg 24 hr tablet, 450 mg PO DAILY 01/17/20 08/27/20 History extended release lorazepam 1 mg tablet 1 mg PO DAILY PRN 01/17/20 08/27/20 History folic acid 1 mg tablet 1 mg PO DAILY 01/29/20 08/27/20 History prenat.vits,marisa,qvk-rbot-wcukk 1 tab PO DAILY 01/29/20 08/27/20 History promethazine 25 mg tablet 25 mg PO QID PRN #30 tab 02/05/20 08/27/20 Rx blood sugar diagnostic #100 each 03/19/20 08/27/20 Rx blood-glucose meter #1 each 03/19/20 08/27/20 Rx lancets 28 gauge #100 each 03/19/20 08/27/20 Rx hydromorphone 2 mg tablet 2 mg PO Q6H PRN #12 tab MDD 8 mg 04/15/20 08/27/20 Rx ondansetron HCl 4 mg tablet 4 mg PO Q8H #30 tab 04/15/20 08/27/20 Rx triamcinolone acetonide 0.1 % 1 applic TP BID #30 gm 05/20/20 08/27/20 Rx topical cream hydroxyzine pamoate 50 mg capsule 50 mg PO TID PRN #30 cap 05/22/20 08/27/20 Rx triamcinolone acetonide 0.5 % 1 applic TP BID #454 gm 05/22/20 08/27/20 Rx topical cream blrfjsnvww-xbxajvdyoltut-uhhkrume 1 cap PO Q6H PRN #30 cap 07/23/20 08/27/20 Rx 50 mg-300 mg-40 mg capsule pantoprazole 20 mg tablet,delayed 20 mg PO DAILY #30 tab 08/13/20 08/27/20 Rx release levothyroxine 150 mcg tablet 150 mcg PO DAILY #90 tab 08/27/20 08/27/20 Rx Allergies Allergy/AdvReac Type Severity Reaction Status Date / Time No Known Allergies Allergy Verified 08/27/20 14:55 Exam Physical Exam Vital signs: Temp Pulse Resp BP 97.9 F 110 H 20 160/102 H 09/10/20 14:13 09/10/20 14:13 09/10/20 14:13 09/10/20 14:13 Detailed Labor and Delivery Exam Calderon Score: Cervical Points Exam 0 1 2 3 Dilation Closed 1-2cm 3-4 cm 5-6cm Effacement 0-30% 40-50% 60-70% 80% Consistency Firm Medium Soft Station -3 -2 -1,0 +1,+2 Position Posterior Mid Anterior Fetus A Monitor Accelerations: 15 X 15 Monitor Decelerations: None Variability: Moderate (6-25 BPM) Presentation: Cephalic Categories: Category I Est. Weight: 6 lb 9.822 oz HEENT Exam HEENT Exam: Normal Neck Exam Neck Exam: Normal Detailed Respiratory Exam Respiratory: Present CTA bilaterally; Absent rales, rhonchi and wheezes Detail Cardiovascular Exam Cardiovascular: Present RRR, S1 and S2; Absent murmur, S3 and S4 Abdominal Exam Abdominal Exam: Normal Exam Exam: Normal Detailed Extremities Exam Extremities: Absent cyanosis, clubbing, edema (1+) and calf tenderness Skin Exam Skin Exam: Normal Detailed Neurological Exam Neurological: Present alert and oriented X3; Absent sensory deficit and motor deficit Psychiatric Exam Psychiatric Exam: Normal Results Results Blood Type: B- Rubella Status: Immune Varicella Immunity: Immune Abnormal Lab Findings: syphilis negative Risk Assessment Risk for Shoulder Dystocia Historical/Initial OB: POSITIVE FOR: Pre- BMI>30; NEGATIVE FOR: Pelvic Abnormality, Previous Shoulder Dystocia or Previous Macrosomia Increased Risk?: Yes (bmi> 30 otherwise w/o risk reviewed wt gain no more than 20 lbs.al) Counselin03/09/20 iob: will do early gct nirmal. al Risk for Pre-Eclampsia Daily Dose ASA Indicated: Yes (reviewed pt accepts low dose asa @ iob 03/09/20 al) Date Initiated/Initials: 03/09/20 al Yes, if one or more: POSTIVE FOR: Hx Pre-E/Gest HTN; NEGATIVE FOR: Chronic HTN, Multiple Gestation, Pre-gestational DM, Renal Disease, Systemic Lupus or APA Syndrome Yes, if 2 or more: POSITIVE FOR: BMI>30; NEGATIVE FOR: Nulliparity, Age>= 35 yrs, >10yr btwn pregnancies, ethinicty, Mother/Sister w/ Pre-E or Previous IUGR Risk for Post- Hemorrhage Initial: NEGATIVE FOR: Multiple Gestation, Previous PPH, Known Clotting Deficiency, Grand Multiparity or Anticoagulation At Risk?: No (03/09/20 as of iob al) Counseled re: Active Management: Yes Risks Reviewed Risks Reviewed Upon Admission: Yes
[2020-09-10 14:50] LABS: HCT 39.9 % (36.0-46.0); HGB 12.8 g/dL (11.2-15.7); MCH 28.7 pg (27.0-33.0); MCHC 32.1 % (32.0-36.0); MCV 89.5 fL (80-95); MPV 12.4 fL (8.0-11.0); Platelet Count 193 10^3/uL (130-400); RBC 4.46 10^6/uL (3.93-5.22); RDW 13.6 % (11.7-14.6); RDW-SD 44.5 fL; WBC 10.08 10^3/uL (4.4-10.8)
[2020-09-10 15:03] LABS: ALT 17 U/L (14-59); AST 14 U/L (15-37); Albumin 2.7 g/dL (3.4-5.0); Alkaline Phosphatase 187 U/L (46-116); Anion Gap 14.4 mmol/L (3-11); BUN 9 mg/dL (7-18); Bilirubin, Total 0.2 mg/dL (0.2-1.0); CO2 20.6 mmol/L (21.0-32.0); CREATININE 0.76 mg/dL (0.55-1.02); Calcium 9.2 mg/dL (8.5-10.1); Chloride 104 mmol/L (98-107); Glucose 111 mg/dL (74-106); Potassium 3.9 mmol/L (3.5-5.1); Sodium 139 mmol/L (136-145)
[2020-09-10] MEDS: Labetalol 100 MG/20 ML VIAL 10 MG IVP (15:12)
[2020-09-10] MEDS: Normal Saline Flush 10 ML SYR (15:15)
[2020-09-10 15:49] LABS: PROTEIN 24.5 mg/dL
[2020-09-10 16:09] LABS: COMMENT (LAB VIEW ONLY) 134.26 mg/dL; Prot/Crea Ur Ratio 0.18
[2020-09-10] MEDS: miSOPROStol 25 MCG TAB 50 MCG PO (16:27)
[2020-09-10] MEDS: Acetaminophen 325 MG TAB 650 MG PO (17:03)
[2020-09-10] MEDS: Acetaminophen 500 MG TAB 1000 MG PO (20:58)
[2020-09-10] MEDS: Zolpidem 5 MG TAB 10 MG PO (23:14)
[2020-09-10] MEDS: Normal Saline Flush 10 ML SYR IVP (23:16)
[2020-09-11] VITALS (154 sets, daily range): BP systolic 103–148; BP diastolic 56–104; PULSE 71–144; RESP 16–20; TEMP 36.5–37; O2SAT 91–100
--- NOTE | 2020-09-11 07:15 | PGE_ITS ---
Date of service: 09/11/20 Time of Service: 07:15 Informed Consent Informed Consent: Induction of Labor Assessment and Plan Assessment and plan (1) Gestational hypertension: Status: Acute Assessment and plan: Patient is having labor induction at 37 weeks and 2 days due to gestational hypertension and gestational diabetes. She did have significantly elevated blood pressures on multiple occasions yesterday. She received 1 dose of IV labetalol one time and the remainder of her blood pressures have been in the 140s over 80s to 90s range throughout the night last night. Cervical exam this morning is unchanged fingertip, 50% baby is ballotable. She has had to many contractions to resume misoprostol. This morning she will have a regular diet, ambulate, shower, and we will restart cervical ripening possibly with De La Fuente catheter this morning. (2) High-risk in third trimester: Status: Acute Objective Abnormal lab results 09/10/20 09/10/20 Range/Units 14:43 14:43 MPV 12.4 H (8.0-11.0) fL Carbon Dioxide 20.6 L (21.0-32.0) mmol/L Anion Gap 14.4 H (3-11) mmol/L Glucose 111 H (74-106) mg/dL AST 14 L (15-37) U/L Alkaline Phosphatase 187 H (46-116) U/L Albumin 2.7 L (3.4-5.0) g/dL Temp Pulse Resp BP 97.9 F 93 H 20 130/82 09/10/20 19:20 09/11/20 04:33 09/10/20 14:13 09/11/20 04:33 Laboratory Results WBC Cancelled 09/10/20 Unknown RBC Cancelled 09/10/20 Unknown Hgb Cancelled 09/10/20 Unknown Hct Cancelled 09/10/20 Unknown MCV Cancelled 09/10/20 Unknown MCH Cancelled 09/10/20 Unknown MCHC Cancelled 09/10/20 Unknown RDW Cancelled 09/10/20 Unknown Plt Count Cancelled 09/10/20 Unknown MPV Cancelled 09/10/20 Unknown Sodium 139 mmol/L (136-145) 09/10/20 14:43 Potassium 3.9 mmol/L (3.5-5.1) 09/10/20 14:43 Chloride 104 mmol/L (98-107) 09/10/20 14:43 Carbon Dioxide 20.6 mmol/L (21.0-32.0) L 09/10/20 14:43 Anion Gap 14.4 mmol/L (3-11) H 09/10/20 14:43 BUN 9 mg/dL (7-18) 09/10/20 14:43 Creatinine 0.76 mg/dL (0.55-1.02) 09/10/20 14:43 Estimated GFR/1.73 m2 >= 60.00 (mL/min/1.73m2) 09/10/20 14:43 Glucose 111 mg/dL (74-106) H 09/10/20 14:43 Calcium 9.2 mg/dL (8.5-10.1) 09/10/20 14:43 Total Bilirubin 0.2 mg/dL (0.2-1.0) 09/10/20 14:43 AST 14 U/L (15-37) L 09/10/20 14:43 ALT 17 U/L (14-59) 09/10/20 14:43 Alkaline Phosphatase 187 U/L (46-116) H 09/10/20 14:43 Total Protein 7.0 g/dL (6.4-8.2) 09/10/20 14:43 Albumin 2.7 g/dL (3.4-5.0) L 09/10/20 14:43 Ur Random Creatinine 134.26 mg/dL 09/10/20 14:30 U Random Total Protein 24.5 mg/dL 09/10/20 14:30 U [place] Prot/Creat Ratio 0.18 09/10/20 14:30 Patient ABO/Rh A Positive 09/10/20 14:43 Antibody Screen Negative 09/10/20 14:43 Subjective Patient Reports: No new Complaints Interval history since last seen: Patient seen and examined this morning. She had a restless night with irregular uterine contractions sleeping on and off. She did receive 1 dose of Cytotec orally at 50 mcg which caused her to have significant amount of contractions. We long conversation regarding induction this morning. Her vital signs have been stable blood pressure normal. Results Hemoglobin/Hematocrit: Hgb Cancelled 09/10/20 Unknown Hct Cancelled 09/10/20 Unknown Abnormal Lab Findings: Abnormal Labs 09/10/20 09/10/20 14:43 14:43 MPV 12.4 H Carbon Dioxide 20.6 L Anion Gap 14.4 H Glucose 111 H AST 14 L Alkaline Phosphatase 187 H Albumin 2.7 L
[2020-09-11] MEDS: Normal Saline Flush 10 ML SYR IVP ×2 (08:50→09:44)
--- NOTE | 2020-09-11 09:10 | W.PM.OBNL1 ---
Date of service: 09/11/20 Time of Service: 09:11 Informed Consent Informed Consent: Induction of Labor Assessment and Plan Assessment and plan (1) Gestational hypertension: Status: Acute Assessment and plan: Blood pressures have remained in the upper normal range overnight. No complaints of headache or visual changes. (2) High-risk in third trimester: Status: Acute (3) Elective induction of labor planned: Status: Acute Assessment and plan: Patient received 1 dose of misoprostol last evening. SVE by Dr. Chong this morning showed no cervical change. De La Fuente catheter was inserted this morning and oxytocin titrated infusion will be initiated. Patient is agreeable to the plan Objective Abnormal lab results 09/10/20 09/10/20 Range/Units 14:43 14:43 MPV 12.4 H (8.0-11.0) fL Carbon Dioxide 20.6 L (21.0-32.0) mmol/L Anion Gap 14.4 H (3-11) mmol/L Glucose 111 H (74-106) mg/dL AST 14 L (15-37) U/L Alkaline Phosphatase 187 H (46-116) U/L Albumin 2.7 L (3.4-5.0) g/dL Temp Pulse Resp BP Pulse Ox 98.6 F 110 H 16 129/87 98 09/11/20 07:57 09/11/20 07:57 09/11/20 07:57 09/11/20 07:57 09/11/20 07:57 Laboratory Results WBC Cancelled 09/10/20 Unknown RBC Cancelled 09/10/20 Unknown Hgb Cancelled 09/10/20 Unknown Hct Cancelled 09/10/20 Unknown MCV Cancelled 09/10/20 Unknown MCH Cancelled 09/10/20 Unknown MCHC Cancelled 09/10/20 Unknown RDW Cancelled 09/10/20 Unknown Plt Count Cancelled 09/10/20 Unknown MPV Cancelled 09/10/20 Unknown Sodium 139 mmol/L (136-145) 09/10/20 14:43 Potassium 3.9 mmol/L (3.5-5.1) 09/10/20 14:43 Chloride 104 mmol/L (98-107) 09/10/20 14:43 Carbon Dioxide 20.6 mmol/L (21.0-32.0) L 09/10/20 14:43 Anion Gap 14.4 mmol/L (3-11) H 09/10/20 14:43 BUN 9 mg/dL (7-18) 09/10/20 14:43 Creatinine 0.76 mg/dL (0.55-1.02) 09/10/20 14:43 Estimated GFR/1.73 m2 >= 60.00 (mL/min/1.73m2) 09/10/20 14:43 Glucose 111 mg/dL (74-106) H 09/10/20 14:43 Calcium 9.2 mg/dL (8.5-10.1) 09/10/20 14:43 Total Bilirubin 0.2 mg/dL (0.2-1.0) 09/10/20 14:43 AST 14 U/L (15-37) L 09/10/20 14:43 ALT 17 U/L (14-59) 09/10/20 14:43 Alkaline Phosphatase 187 U/L (46-116) H 09/10/20 14:43 Total Protein 7.0 g/dL (6.4-8.2) 09/10/20 14:43 Albumin 2.7 g/dL (3.4-5.0) L 09/10/20 14:43 Ur Random Creatinine 134.26 mg/dL 09/10/20 14:30 U Random Total Protein 24.5 mg/dL 09/10/20 14:30 U [place] Prot/Creat Ratio 0.18 09/10/20 14:30 Patient ABO/Rh A Positive 09/10/20 14:43 Antibody Screen Negative 09/10/20 14:43 Subjective Patient Reports: No new Complaints Interventions Induction Indication: Chronic Hypertension , Type of Induction: De La Fuente Bulb and Pitocin (Simultaneous with De La Fuente catheter) Will use the center protocol . , Results Hemoglobin/Hematocrit: Hgb Cancelled 09/10/20 Unknown Hct Cancelled 09/10/20 Unknown Abnormal Lab Findings: Abnormal Labs 09/10/20 09/10/20 14:43 14:43 MPV 12.4 H Carbon Dioxide 20.6 L Anion Gap 14.4 H Glucose 111 H AST 14 L Alkaline Phosphatase 187 H Albumin 2.7 L Procedure Procedures: Cervical Ripening Cervical Ripening: De La Fuente Bulb (16 [place] De La Fuente catheter inserted past internal os balloon inflated to 30 cc)
[2020-09-11] MEDS: Acetaminophen 500 MG TAB 1000 MG PO ×2 (09:18→15:50)
[2020-09-11] MEDS: Lactated Ringers 1,000 ML 125 ML IV ×3 (09:46→18:08)
--- NOTE | 2020-09-11 10:07 | W.PM.OBNL1 ---
Date of service: 09/11/20 Time of Service: 10:07 Informed Consent Informed Consent: Induction of Labor Assessment and Plan Assessment and plan (1) Gestational hypertension: Status: Acute (2) Elective induction of labor planned: Status: Acute Objective Abnormal lab results 09/10/20 09/10/20 Range/Units 14:43 14:43 MPV 12.4 H (8.0-11.0) fL Carbon Dioxide 20.6 L (21.0-32.0) mmol/L Anion Gap 14.4 H (3-11) mmol/L Glucose 111 H (74-106) mg/dL AST 14 L (15-37) U/L Alkaline Phosphatase 187 H (46-116) U/L Albumin 2.7 L (3.4-5.0) g/dL Temp Pulse Resp BP Pulse Ox 98.6 F 110 H 16 129/87 98 09/11/20 07:57 09/11/20 07:57 09/11/20 07:57 09/11/20 07:57 09/11/20 07:57 Laboratory Results WBC Cancelled 09/10/20 Unknown RBC Cancelled 09/10/20 Unknown Hgb Cancelled 09/10/20 Unknown Hct Cancelled 09/10/20 Unknown MCV Cancelled 09/10/20 Unknown MCH Cancelled 09/10/20 Unknown MCHC Cancelled 09/10/20 Unknown RDW Cancelled 09/10/20 Unknown Plt Count Cancelled 09/10/20 Unknown MPV Cancelled 09/10/20 Unknown Sodium 139 mmol/L (136-145) 09/10/20 14:43 Potassium 3.9 mmol/L (3.5-5.1) 09/10/20 14:43 Chloride 104 mmol/L (98-107) 09/10/20 14:43 Carbon Dioxide 20.6 mmol/L (21.0-32.0) L 09/10/20 14:43 Anion Gap 14.4 mmol/L (3-11) H 09/10/20 14:43 BUN 9 mg/dL (7-18) 09/10/20 14:43 Creatinine 0.76 mg/dL (0.55-1.02) 09/10/20 14:43 Estimated GFR/1.73 m2 >= 60.00 (mL/min/1.73m2) 09/10/20 14:43 Glucose 111 mg/dL (74-106) H 09/10/20 14:43 Calcium 9.2 mg/dL (8.5-10.1) 09/10/20 14:43 Total Bilirubin 0.2 mg/dL (0.2-1.0) 09/10/20 14:43 AST 14 U/L (15-37) L 09/10/20 14:43 ALT 17 U/L (14-59) 09/10/20 14:43 Alkaline Phosphatase 187 U/L (46-116) H 09/10/20 14:43 Total Protein 7.0 g/dL (6.4-8.2) 09/10/20 14:43 Albumin 2.7 g/dL (3.4-5.0) L 09/10/20 14:43 Ur Random Creatinine 134.26 mg/dL 09/10/20 14:30 U Random Total Protein 24.5 mg/dL 09/10/20 14:30 U [place] Prot/Creat Ratio 0.18 09/10/20 14:30 Patient ABO/Rh A Positive 09/10/20 14:43 Antibody Screen Negative 09/10/20 14:43 Subjective Interval history since last seen: Patient had transcervical De La Fuente placed without difficulty. 30 cc normal saline was instilled into the De La Fuente bulb and the De La Fuente catheter attached to the patient's leg. I was notified that the patient has been experiencing contractions every 2 minutes since the De La Fuente bulb was placed. I recommended that we not start the oxytocin augmentation and instead plan to recheck the patient's cervix in about 2 hours. Interventions Augmentation (I recommended that oxytocin infusion be placed on hold for the next 2 hours 2/2 contractions.) , Pitocin rate (mU/min): 0 Results Hemoglobin/Hematocrit: Hgb Cancelled 09/10/20 Unknown Hct Cancelled 09/10/20 Unknown Abnormal Lab Findings: Abnormal Labs 09/10/20 09/10/20 14:43 14:43 MPV 12.4 H Carbon Dioxide 20.6 L Anion Gap 14.4 H Glucose 111 H AST 14 L Alkaline Phosphatase 187 H Albumin 2.7 L
--- NOTE | 2020-09-11 11:59 | PGE_ITS ---
Date of service: 09/11/20 Time of Service: 11:59 Informed Consent Informed Consent: Induction of Labor Assessment and Plan Assessment and plan (1) Elective induction of labor planned: Status: Acute Assessment and plan: On sterile vaginal exam the De La Fuente balloon was located in the vagina. After it was removed a SVE was performed but limited by pt's fabiano ludwig with the exam. Cervix 3cm mid-position, soft, effacement 25%. VTX with high cephalic presentation. Will request anesthesia consult to perform an epidural in anticipation of active labor. (2) Gestational hypertension: Status: Acute Assessment and plan: Stable BPs. Qualifiers: Trimester: third trimester Qualified Code(s): O13.3 - Gestational [-induced] hypertension without significant proteinuria, third trimester Objective Abnormal lab results 09/10/20 09/10/20 Range/Units 14:43 14:43 MPV 12.4 H (8.0-11.0) fL Carbon Dioxide 20.6 L (21.0-32.0) mmol/L Anion Gap 14.4 H (3-11) mmol/L Glucose 111 H (74-106) mg/dL AST 14 L (15-37) U/L Alkaline Phosphatase 187 H (46-116) U/L Albumin 2.7 L (3.4-5.0) g/dL Temp Pulse Resp BP Pulse Ox 97.7 F 89 16 123/85 96 09/11/20 11:53 09/11/20 11:54 09/11/20 11:53 09/11/20 11:53 09/11/20 11:54 Laboratory Results WBC Cancelled 09/10/20 Unknown RBC Cancelled 09/10/20 Unknown Hgb Cancelled 09/10/20 Unknown Hct Cancelled 09/10/20 Unknown MCV Cancelled 09/10/20 Unknown MCH Cancelled 09/10/20 Unknown MCHC Cancelled 09/10/20 Unknown RDW Cancelled 09/10/20 Unknown Plt Count Cancelled 09/10/20 Unknown MPV Cancelled 09/10/20 Unknown Sodium 139 mmol/L (136-145) 09/10/20 14:43 Potassium 3.9 mmol/L (3.5-5.1) 09/10/20 14:43 Chloride 104 mmol/L (98-107) 09/10/20 14:43 Carbon Dioxide 20.6 mmol/L (21.0-32.0) L 09/10/20 14:43 Anion Gap 14.4 mmol/L (3-11) H 09/10/20 14:43 BUN 9 mg/dL (7-18) 09/10/20 14:43 Creatinine 0.76 mg/dL (0.55-1.02) 09/10/20 14:43 Estimated GFR/1.73 m2 >= 60.00 (mL/min/1.73m2) 09/10/20 14:43 Glucose 111 mg/dL (74-106) H 09/10/20 14:43 Calcium 9.2 mg/dL (8.5-10.1) 09/10/20 14:43 Total Bilirubin 0.2 mg/dL (0.2-1.0) 09/10/20 14:43 AST 14 U/L (15-37) L 09/10/20 14:43 ALT 17 U/L (14-59) 09/10/20 14:43 Alkaline Phosphatase 187 U/L (46-116) H 09/10/20 14:43 Total Protein 7.0 g/dL (6.4-8.2) 09/10/20 14:43 Albumin 2.7 g/dL (3.4-5.0) L 09/10/20 14:43 Ur Random Creatinine 134.26 mg/dL 09/10/20 14:30 U Random Total Protein 24.5 mg/dL 09/10/20 14:30 U [place] Prot/Creat Ratio 0.18 09/10/20 14:30 Patient ABO/Rh A Positive 09/10/20 14:43 Antibody Screen Negative 09/10/20 14:43 Subjective Interval history since last seen: He reports an increased intensity and frequen cy of contractions. Unsure if De La Fuente bulb has slipped out of cervix. Results Hemoglobin/Hematocrit: Hgb Cancelled 09/10/20 Unknown Hct Cancelled 09/10/20 Unknown Abnormal Lab Findings: Abnormal Labs 09/10/20 09/10/20 14:43 14:43 MPV 12.4 H Carbon Dioxide 20.6 L Anion Gap 14.4 H Glucose 111 H AST 14 L Alkaline Phosphatase 187 H Albumin 2.7 L
[2020-09-11] MEDS: FentaNYL/ROPIvacaine 2 mcg/ml and 0.1% 200 ML CADD Cassette EP (12:40)
[2020-09-11] MEDS: Oxytocin/Normal Saline 30 UNIT/500 ML BAG 2 UNITS IV (15:35)
--- NOTE | 2020-09-11 18:06 | W.PM.OBNL1 ---
Date of service: 09/11/20 Time of Service: 18:07 Informed Consent Informed Consent: Induction of Labor Assessment and Plan Assessment and plan (1) Gestational hypertension: Status: Acute Assessment and plan: Patient blood pressure currently stable after episode of bradycardia at the onset of the epidural infusion. Plan at this time is to not restart the epidural instead of the patient alternative methods of labor analgesia Qualifiers: Trimester: third trimester Qualified Code(s): O13.3 - Gestational [-induced] hypertension without significant proteinuria, third trimester (2) Encounter for induction of labor: Status: Acute Objective Temp Pulse Resp BP Pulse Ox 97.7 F 81 16 124/76 100 09/11/20 11:53 09/11/20 18:02 09/11/20 11:53 09/11/20 18:02 09/11/20 15:01 Laboratory Results WBC Cancelled 09/10/20 Unknown RBC Cancelled 09/10/20 Unknown Hgb Cancelled 09/10/20 Unknown Hct Cancelled 09/10/20 Unknown MCV Cancelled 09/10/20 Unknown MCH Cancelled 09/10/20 Unknown MCHC Cancelled 09/10/20 Unknown RDW Cancelled 09/10/20 Unknown Plt Count Cancelled 09/10/20 Unknown MPV Cancelled 09/10/20 Unknown Sodium 139 mmol/L (136-145) 09/10/20 14:43 Potassium 3.9 mmol/L (3.5-5.1) 09/10/20 14:43 Chloride 104 mmol/L (98-107) 09/10/20 14:43 Carbon Dioxide 20.6 mmol/L (21.0-32.0) L 09/10/20 14:43 Anion Gap 14.4 mmol/L (3-11) H 09/10/20 14:43 BUN 9 mg/dL (7-18) 09/10/20 14:43 Creatinine 0.76 mg/dL (0.55-1.02) 09/10/20 14:43 Estimated GFR/1.73 m2 >= 60.00 (mL/min/1.73m2) 09/10/20 14:43 Glucose 111 mg/dL (74-106) H 09/10/20 14:43 Calcium 9.2 mg/dL (8.5-10.1) 09/10/20 14:43 Total Bilirubin 0.2 mg/dL (0.2-1.0) 09/10/20 14:43 AST 14 U/L (15-37) L 09/10/20 14:43 ALT 17 U/L (14-59) 09/10/20 14:43 Alkaline Phosphatase 187 U/L (46-116) H 09/10/20 14:43 Total Protein 7.0 g/dL (6.4-8.2) 09/10/20 14:43 Albumin 2.7 g/dL (3.4-5.0) L 09/10/20 14:43 Ur Random Creatinine 134.26 mg/dL 09/10/20 14:30 U Random Total Protein 24.5 mg/dL 09/10/20 14:30 U [place] Prot/Creat Ratio 0.18 09/10/20 14:30 Patient ABO/Rh A Positive 09/10/20 14:43 Antibody Screen Negative 09/10/20 14:43 Subjective Interval history since last seen: Patient received epidural and had test dose without problems. Subsequently she developed complaints of dizziness lightheadedness and spots before her eyes as the epidural infusion was initiated. The infusion was discontinued and she was treated with Jules-Synephrine by the anesthesia provider. There was one episode of bradycardia that quickly resolved with category 1 status after the deceleration. The epidural infusion was not restarted. After the repeat sterile vaginal exam showed minimal cervical change an oxytocin infusion was initiated. Patient's contraction pattern has since showed palpable contractions closer together with category 1 heart rate tracing. We will continue management. Results Hemoglobin/Hematocrit: Hgb Cancelled 09/10/20 Unknown Hct Cancelled 09/10/20 Unknown Abnormal Lab Findings: Abnormal Labs 09/10/20 09/10/20 14:43 14:43 MPV 12.4 H Carbon Dioxide 20.6 L Anion Gap 14.4 H Glucose 111 H AST 14 L Alkaline Phosphatase 187 H Albumin 2.7 L
[2020-09-11] MEDS: Oxytocin/Normal Saline 30 UNIT/500 ML BAG 8 UNITS IV (19:58)
--- NOTE | 2020-09-11 20:41 | NUR.NOTE ---
Nursing Note: [address] ann then fse and iupc both placed for better monitoring
--- NOTE | 2020-09-11 20:44 | PGE_ITS ---
Date of service: 09/11/20 Time of Service: 20:45 Informed Consent Informed Consent: Induction of Labor Assessment and Plan Assessment and plan (1) Encounter for induction of labor: Status: Acute (2) Gestational hypertension: Status: Acute Qualifiers: Trimester: third trimester Qualified Code(s): O13.3 - Gestational [-induced] hypertension without significant proteinuria, third trimester Objective Temp Pulse Resp BP Pulse Ox 97.7 F 81 16 124/76 100 09/11/20 11:53 09/11/20 18:02 09/11/20 11:53 09/11/20 18:02 09/11/20 15:01 Laboratory Results WBC Cancelled 09/10/20 Unknown RBC Cancelled 09/10/20 Unknown Hgb Cancelled 09/10/20 Unknown Hct Cancelled 09/10/20 Unknown MCV Cancelled 09/10/20 Unknown MCH Cancelled 09/10/20 Unknown MCHC Cancelled 09/10/20 Unknown RDW Cancelled 09/10/20 Unknown Plt Count Cancelled 09/10/20 Unknown MPV Cancelled 09/10/20 Unknown Sodium 139 mmol/L (136-145) 09/10/20 14:43 Potassium 3.9 mmol/L (3.5-5.1) 09/10/20 14:43 Chloride 104 mmol/L (98-107) 09/10/20 14:43 Carbon Dioxide 20.6 mmol/L (21.0-32.0) L 09/10/20 14:43 Anion Gap 14.4 mmol/L (3-11) H 09/10/20 14:43 BUN 9 mg/dL (7-18) 09/10/20 14:43 Creatinine 0.76 mg/dL (0.55-1.02) 09/10/20 14:43 Estimated GFR/1.73 m2 >= 60.00 (mL/min/1.73m2) 09/10/20 14:43 Glucose 111 mg/dL (74-106) H 09/10/20 14:43 Calcium 9.2 mg/dL (8.5-10.1) 09/10/20 14:43 Total Bilirubin 0.2 mg/dL (0.2-1.0) 09/10/20 14:43 AST 14 U/L (15-37) L 09/10/20 14:43 ALT 17 U/L (14-59) 09/10/20 14:43 Alkaline Phosphatase 187 U/L (46-116) H 09/10/20 14:43 Total Protein 7.0 g/dL (6.4-8.2) 09/10/20 14:43 Albumin 2.7 g/dL (3.4-5.0) L 09/10/20 14:43 Ur Random Creatinine 134.26 mg/dL 09/10/20 14:30 U Random Total Protein 24.5 mg/dL 09/10/20 14:30 U [place] Prot/Creat Ratio 0.18 09/10/20 14:30 Patient ABO/Rh A Positive 09/10/20 14:43 Antibody Screen Negative 09/10/20 14:43 Subjective Interval history since last seen: Oxytocin augmentation has progressed currently infusion rate is 8 milliunits/min. Patient experiencing strong regular c ontractions. Results Hemoglobin/Hematocrit: Hgb Cancelled 09/10/20 Unknown Hct Cancelled 09/10/20 Unknown Abnormal Lab Findings: Abnormal Labs 09/10/20 09/10/20 14:43 14:43 MPV 12.4 H Carbon Dioxide 20.6 L Anion Gap 14.4 H Glucose 111 H AST 14 L Alkaline Phosphatase 187 H Albumin 2.7 L Procedure Procedures: Scalp Electrode Placement , indication for electrode: Patient uncomfortable remaining in right lateral position to facilitate monitoring heart rate / IUPC Insertion , indication for IUPC: Difficulty appreciating uterine contractions with external tocometer / Other (External contraction tocometer and heart rate monitor were removed and assisted rupture membranes was performed with an amnio hook with copious amounts of clear amniotic fluid returned. scalp electrode and intrauterine pressure ca theter inserted and functional. Cervical exam 5 cm dilat)
--- NOTE | 2020-09-11 21:38 | W.PM.OBNL1 ---
Date of service: 09/11/20 Time of Service: 21:38 Informed Consent Informed Consent: Induction of Labor Assessment and Plan Assessment and plan (1) Encounter for induction of labor: Status: Acute Assessment and plan: SVE below presenting part remains high vertex cervix remains 5 cm. IUPC is not registering contractions oxytocin infusion decreased from 8 milliunits/min to 6 milliunits/min. heart rate category 1 amniotic fluid remains clear. He is sports book writer contacted and I discussed the possibility of restarting epidural. He will present to the unit shortly. Patient notified of plans to restart epidural. (2) Gestational hypertension: Status: Acute Qualifiers: Trimester: third trimester Qualified Code(s): O13.3 - Gestational [-induced] hypertension without significant proteinuria, third trimester Objective Temp Pulse Resp BP Pulse Ox 97.7 F 81 18 126/85 100 09/11/20 20:50 09/11/20 20:50 09/11/20 20:50 09/11/20 20:50 09/11/20 15:01 Laboratory Results WBC Cancelled 09/10/20 Unknown RBC Cancelled 09/10/20 Unknown Hgb Cancelled 09/10/20 Unknown Hct Cancelled 09/10/20 Unknown MCV Cancelled 09/10/20 Unknown MCH Cancelled 09/10/20 Unknown MCHC Cancelled 09/10/20 Unknown RDW Cancelled 09/10/20 Unknown Plt Count Cancelled 09/10/20 Unknown MPV Cancelled 09/10/20 Unknown Sodium 139 mmol/L (136-145) 09/10/20 14:43 Potassium 3.9 mmol/L (3.5-5.1) 09/10/20 14:43 Chloride 104 mmol/L (98-107) 09/10/20 14:43 Carbon Dioxide 20.6 mmol/L (21.0-32.0) L 09/10/20 14:43 Anion Gap 14.4 mmol/L (3-11) H 09/10/20 14:43 BUN 9 mg/dL (7-18) 09/10/20 14:43 Creatinine 0.76 mg/dL (0.55-1.02) 09/10/20 14:43 Estimated GFR/1.73 m2 >= 60.00 (mL/min/1.73m2) 09/10/20 14:43 Glucose 111 mg/dL (74-106) H 09/10/20 14:43 Calcium 9.2 mg/dL (8.5-10.1) 09/10/20 14:43 Total Bilirubin 0.2 mg/dL (0.2-1.0) 09/10/20 14:43 AST 14 U/L (15-37) L 09/10/20 14:43 ALT 17 U/L (14-59) 09/10/20 14:43 Alkaline Phosphatase 187 U/L (46-116) H 09/10/20 14:43 Total Protein 7.0 g/dL (6.4-8.2) 09/10/20 14:43 Albumin 2.7 g/dL (3.4-5.0) L 09/10/20 14:43 Ur Random Creatinine 134.26 mg/dL 09/10/20 14:30 U Random Total Protein 24.5 mg/dL 09/10/20 14:30 U [place] Prot/Creat Ratio 0.18 09/10/20 14:30 Patient ABO/Rh A Positive 09/10/20 14:43 Antibody Screen Negative 09/10/20 14:43 Subjective Patient Reports: New Complaints Interval history since last seen: Call to for center patient experiencing increased pain with contractions. States little relief from nitrous oxide. Interventions Pain Management Interventions: Nitrous Oxide , Not tolerated by patient and Other (On-call anesthesia provider notified of increased patient discomfort) ./ Augmentation , Pitocin rate (mU/min): 6 Decreased from 8 milliunits/minute . Results Hemoglobin/Hematocrit: Hgb Cancelled 09/10/20 Unknown Hct Cancelled 09/10/20 Unknown Abnormal Lab Findings: Abnormal Labs 09/10/20 09/10/20 14:43 14:43 MPV 12.4 H Carbon Dioxide 20.6 L Anion Gap 14.4 H Glucose 111 H AST 14 L Alkaline Phosphatase 187 H Albumin 2.7 L
[2020-09-11] MEDS: Oxytocin/Normal Saline 30 UNIT/500 ML BAG 4 UNITS IV (21:49)
--- NOTE | 2020-09-11 21:57 | NUR.NOTE ---
Nursing Note: 3100 anesthesia here to restart epidural
--- NOTE | 2020-09-11 22:04 | PDOC.ANES ---
Date of service: 09/11/20 Time of Service: 22:04 Anesthesia Note Labor Epidural management: Called to patient bedside due to increasing pain and need for intervention. Patient requesting epidural be restarted. Previous attempt at initialization of epidural failed due to maternal hypotension (patient set point is high due to gestational hypertension) and bradycardia. The patient, on arrival, appeared in distress with spouse and patient's RN at bedside. Last BP normotensive. I initialized epidural at 10 ml/hr of Ropivacaine with no loading dose. I requested the RN increase monitoring of blood pressure to every 5 minutes or less. Will remain present over the next 30 minutes to monitor initialization of epidural therapy.
--- NOTE | 2020-09-11 22:34 | PDOC.ANES ---
Date of service: 09/11/20 Time of Service: 22:34 Anesthesia Note Report Anesthesia Note: Patient seen at bedside, appears more comfortable than when seen earlier. Patient reports feeling better, vital signs are stable, no visual changes. Assessed level of block with alcohol, expected level (L2) and setting up appropriately. Will reassess in another 15 minutes.
[2020-09-12] VITALS (78 sets, daily range): BP systolic 111–150; BP diastolic 62–91; PULSE 0–118; RESP 18–20; TEMP 36.5–36.6; O2SAT 97–100
[2020-09-12] MEDS: Oxytocin/Normal Saline 30 UNIT/500 ML BAG 5 UNITS IV (02:38)
[2020-09-12] MEDS: Calcium Carbonate *TUMS* 500 MG CHEW (02:53)
[2020-09-12] MEDS: Prenatal Multivitamin w/CA,FE TAB 1 TAB PO (09:02)
[2020-09-12] MEDS: Levothyroxine 150 MCG TAB PO (09:04)
[2020-09-12] MEDS: Lactated Ringers 1,000 ML 125 ML IV (09:21)
--- NOTE | 2020-09-12 11:33 | W.OBDELIVERY ---
Date of service: 09/12/20 Time of Service: 11:34 OB Labor/ Delivery Information Providers Doctor: Annemarie Burroughs Wage Adjuster: Gutierrez Malhotra Nurse: Malu Chou Nurse: Tala Maloney Labor/Delivery Information Number of Babies in Womb: 1 Steroids Given: None Reason Steroids Not Administered: N/A Group Beta Strep: Negative Antibiotics Administered: No Rubella Status: Immune Blood Type: A+ Varicella Immunity: Immune Shoulder Dystocia: No Stages of Labor Complete Dilatation Date: 09/12/20 Complete Dilatation Time: 03:50 ROM Baby A: 09/11/20 ROM Baby A: 20:15 Delivery Date-Baby A: 09/12/20 Infant Delivery Time-Baby A: 04:56 Labor Stage 2 Duration: 1 hours and 6 minutes Placenta Delivery Date-Baby A: 09/12/20 Placenta Delivery Time-Baby A: 05:06 Labor-Stage 3 Duration: 10 minutes Placenta Status: Delivered Baby A Gender: Male Gestational Status: Early Term (37-38.6 wks) Gestational Age in Weeks/Days: 37 Weeks and 4 Days weight: 6 lb 15.642 oz Length-Baby A: 19.49 in Head Circumference-Baby A: 12.75 in Procedure Procedures: Scalp Electrode Placement , indication for electrode: FHR could only be detected with pt in L lateral position / IUPC Insertion , indication for IUPC: Unable to accurately Uterine contractions with external tocometer. Interventions Pain Management Interventions: Epidural (Pt had mild hypotension with FHR changes when epidural infusion started. It was turned off till active labor) Epidural Placed by:: Sugar Singh Epidural restarted when pt 5cm. Effective analgesia. No further episodes of hypotension when epidural infusion restarted. Excellent labor analgesia acheived. . and Nitrous Oxide (attempted to use prior to restarting epidural anlagesia. Pt intolerant of it and declined further use.) , Pt offered Nitrous Oxide after epidural infusion was halted. She used briefly during one contraction and declined further use. ./ Induction Indication: Gestational Hypertension (elevated BPs at time of scheduled NST on 09/10/20) , Type of Induction: [place] Bulb and Pitocin , Shoulder Dystocia Delivery Times Head to Body Delivery Interval(minutes): less than a minute. No evidence of dystocia Verify No Fundal Pressure Applied Fundal Pressure: No Pressure Applied Arm Under Sympisis Arm Under Symphisis: Right
[2020-09-12] MEDS: Acetaminophen 325 MG TAB 650 MG PO (15:27)
[2020-09-12] MEDS: Ibuprofen 600 MG TAB PO (15:28)
[2020-09-13] MEDS: Ibuprofen 600 MG TAB PO ×2 (00:48→08:21)
[2020-09-13] MEDS: Acetaminophen 500 MG TAB 1000 MG PO (00:48)
[2020-09-13 07:40] VITALS: BP 122/84; PULSE 94; RESP 16; TEMP 36.9; O2SAT 97
[2020-09-13] MEDS: Acetaminophen 325 MG TAB 650 MG PO (08:20)
[2020-09-13] MEDS: Levothyroxine 150 MCG TAB PO (08:21)
[2020-09-13 09:20] LABS: SARS-CoV-2 RNA Not Detected (NotDetected); SARS-CoV-2 RNA Source Nasal/Nares
--- NOTE | 2020-09-13 11:18 | W.PM.OBDISCH ---
Date of service: 09/13/20 Time of Service: 11:19 DS: Diagnosis Discharge Diagnosis (1) Encounter for induction of labor: Status: Acute (2) Gestational hypertension: Status: Acute (3) Hx of vaginal delivery: Status: Acute Asessment and Plan: Patient is a 63-pehp-qdx-year-old with history of 2 previous vaginal deliveries. She has had care at the [facility]. her had been complicated by gestational diabetes and excellent glycemic control. She did not require medication during her . On the day of admission she presented for surveillance and to have elevated blood pressures. Blood pressure on initial presentation was 170/100s. Repeat 160s over 90s. Due to the fact that she was late with elevated blood pressures and diabetes decision was made for labor induction. She went on to have induction of labor with 1 dose of misoprostol and oxytocin titrated infusion. Spontaneous vaginal delivery on the morning of 09/12/2020 for male named Ralf weighing 6 pounds 15 ounces over an intact perineum. Patient was discharged home on post day 1 successfully breast-feeding. Plan is to have a follow-up in 1 week for visit and blood pressure assessment. Discharge Plan Disposition Patient Disposition: HOME Condition: Good Discharge Details Reason For Visit: GESTATIONAL HYPERTENSION Admit Date/Time: 09/10/20 15:01 Admit Provider: Telma Chong Attending Provider: Telma Chong Primary Care Provider: Justin Breaux [facility] Course: Patient is a 39-ylyj-kkr-year-old with history of 2 previous vaginal deliveries. She has had care at the [facility]. her had been complicated by gestational diabetes and excellent glycemic control. She did not require medication during her . On the day of admission she presented for surveillance and to have elevated blood pressures. Blood pressure on initial presentation was 170/100s. Repeat 160s over 90s. Due to the fact that she was late with elevated blood pressures and diabetes decision was made for labor induction. She went on to have induction of labor with 1 dose of misoprostol and oxytocin titrated infusion. Spontaneous vaginal delivery on the morning of 09/12/2020 for male infant named Ralf weighing 6 pounds 15 ounces over an intact perineum. Patient was discharged home on post day 1 successfully breast-feeding. Plan is to have a follow-up in 1 week for visit and blood pressure assessment. Home Meds and New Rx's Prescriptions: No Action lorazepam 1 mg tablet 1 mg PO DAILY PRNRF: 0 bupropion HCl 450 mg tablet extended release 24 hr 450 mg PO DAILY RF: 0 prenat.vits,marisa,gls-usvl-ebhtx Tablet 1 tab PO DAILY RF: 0 folic acid 1 mg tablet 1 mg PO DAILY RF: 0 triamcinolone acetonide 0.1 % cream 1 applic TP BID Qty: 30 RF: 3 ooluqykhal-byccrquacanmo-ullg [Fioricet] 50-300-40 mg capsule 1 cap PO Q6H PRN (Reason: pain) Qty: 30 RF: 0 pantoprazole [Protonix] 20 mg tablet,delayed release (DR/EC) 20 mg PO DAILY Qty: 30 RF: 1 levothyroxine [Euthyrox] 150 mcg tablet 150 mcg PO DAILY Qty: 90 RF: 5 promethazine 25 mg tablet 25 mg PO QID PRN (Reason: nausea and vomiting) Qty: 30 RF: 1 (DME) blood sugar diagnostic [FreeStyle Lite Strips] Strip See Rx Instructions .ROUTE .MEDSUPPLY Qty: 100 RF: 7 (DME) blood-glucose meter [FreeStyle Lite Meter] Kit See Rx Instructions .ROUTE .MEDSUPPLY Qty: 1 RF: 0 (DME) lancets [FreeStyle Lancets] 28 gauge misc See Rx Instructions .ROUTE .MEDSUPPLY Qty: 100 RF: 7 ondansetron HCl [Zofran] 4 mg tablet 4 mg PO Q8H Qty: 30 RF: 4 hydromorphone [Dilaudid] 2 mg tablet 2 mg PO Q6H MDD 8 mg PRN (Reason: pain) Qty: 12 RF: 0 hydroxyzine pamoate [Vistaril] 50 mg capsule 50 mg PO TID PRN (Reason: itching) Qty: 30 RF: 1 triamcinolone acetonide 0.5 % cream 1 applic TP BID Qty: 454 RF: 0 Discharge Instructions Additional Instructions: [facility] Monday[facility]/2022 make a follow-up appointment for blood pressure check in the next week with Dr. Burroughs or Dr. Chong. Stand Alone Forms: BC Instructions, BC Post Vaginal Deliver Activity:: Activity as Tolerated Equipment/Supplies:: No Equipment Needed Diet:: As Tolerated Discharge Orders Discharge Orders: Discharge Order (Routine); Ordered 09/13/20 Ordered By: Annemarie Burroughs OB:BANG Summary Summary Episiotomy Description: None Laceration Description: None Laceration Extension: N/A Contraception Discussed Contraception Discussed: No (During her course. Will address at visit.), Infant Gender-Baby A: Male weight: 6 lb 15.642 oz Status at Discharge Functional status at discharge: independent ambulation Overall status at discharge: patient is progressing back to baseline Mental Status: mental status grossly normal Speech and Movement: speech and movement normal Mood: congruent mood Affect: normal affect Exam Physical Exam Vital signs: Temp Pulse Resp BP Pulse Ox 98.4 F 94 H 16 122/84 97 09/13/20 07:40 09/13/20 07:40 09/13/20 07:40 09/13/20 07:40 09/13/20 07:40 Constitutional Constitutional: no acute distress, obese and cooperative Respiratory Exam Respiratory Exam: Normal Cardiovascular Exam Cardiovascular Exam: Normal Fundal Exam Fundus: Below Umbilicus and Firm Rectal Exam Rectal Exam: Not Done Exam Patient deferred: perineal exam Perineum: Intact and Normal External: Present normal urethra appearance and discharge (Lochia rubra) Extremities Exam Extremity Exam: Normal Psychiatric Exam Psychiatric Exam: Normal [facility] Medical History (Updated 09/13/20 @ 11:26 by Annemarie Burroughs MD) Anxiety Cholelithiasis Gestational diabetes Not requiring treatment. Gestational hypertension High-risk in third trimester Hypothyroid Seizure disorder as child age 13/14 tx w/ meds d/c'd @ age 19. none again until labor with 2nd l&d. Unsatisfactory cervical Papanicolaou smear Unsat pap 03/09/20 - repeat at 6 wks PP Surgical History History of laparoscopy removal of endometriosis, day surgery @ [facility] w/o c/o. Family History Father Diabetes Heart disease Mother Migraine Maternal Grandmother Diabetes Maternal Grandfather Heart disease Colon cancer Hypertension Social History (Reviewed 11/05/20 @ 14:56 by DARLIN Burnett Smoking/Tobacco Use Status: Never Second Hand Exposure: No Smoking risk assessment performed?: Yes Alcohol Intake: never Drug use: Never Do you feel safe at home: Yes Do you feel safe in your relationship?: Yes History History 3 Para 2 Hx # Term Pregnancies 2 Multiple births 0 Hx # Pregnancies 0 Ectopic pregnancies 0 AB induced 0 Hx Number of Living Children 2 AB spontaneous Past Pregnancies Del. Date GA/Weeks # Outcome Route Wgt Sex Labor Lgth Anesthesia Location Prov Complic 09/10/11 40 No Successful vaginal 7 lb 9 oz Male iol for pre-e. [facility] 04/13/14 38 No Successful vaginal 8 lb 2 oz Female x 5hrs [facility] Delivery Date: 09/10/11 iol for pre-e, x 2 days. w/o c/o. MARILUZ TUCKER Delivery Date: 04/13/14 rom w/ ucs yet augmentation was recommended. Tachysystole then pitocin d/c'd Vacuum caused significant abrasion thus ointment needed & tylenol. ? seizure activity tx. w/ observation and [facility]u x3 days on eeg monitor then d/c to home. no meds. MARILUZ TUCKER DS: Data Vitals/I&O Vitals and I&O: Vital Signs Temperature 98.4 F 09/13/20 07:40 Pulse 94 H 09/13/20 07:40 Pulse Rhythm Regular 09/13/20 08:40 Respiratory Rate 16 09/13/20 07:40 Blood Pressure 122/84 09/13/20 07:40 Blood Pressure Mean 96 09/13/20 07:40 Pulse Oximetry 97 09/13/20 07:40 Oxygen Delivery Method Room Air 09/11/20 21:30 Oxygen Flow Rate 0 09/11/20 21:30 Pain Level 5 09/13/20 08:21 Intake & Output 09/12/20 09/12/20 09/13/20 11:59 23:59 11:59 Intake Total 1219.267 / 1788.267 569 / 1788.267 Output Total 1500 / 1800 300 / 1800 Balance -280.733 / -11.733 269 / -11.733 Intake: IV 1019.267 / 1588.267 569 / 1588.267 Oral 200 / 200 Output: Urine 1500 / 1800 300 / 1800 Other: Urine Color Yellow Pale Urine Appearance Clear Clear Urine Odor None None Comment straight cath'd due to epidural being in place and numbness in lower extremity Voiding Methods Toilet Toilet Toilet Data Completed and Pending Labs on day of discharge: Labs from last 24 hours 09/10/20 15:18 COVID-19 PCR Cancelled Nasopharyn COVID-19 PCR Cancelled SARS-CoV-2 Source Nasal/nares SARS-CoV-2 (PCR) Not detected Ref Test Perform Site Cancelled
== END 2020-09-13 15:10 | disposition home or self-care (01) | DRG 807 ==
LOC: OBS 15:15 → BCD 16:52
PROVIDERS: Admitting Provider Obstetrics & Gynecology; PCP Family Medicine; Visit Provider Obstetrics & Gynecology
DX: O13.4 Gestational [pregnancy-induced] hypertension without significant proteinuria, complicating childbirth (principal); Z37.0 Single live birth; O76 Abnormality in fetal heart rate and rhythm complicating labor and delivery; Z3A.37 37 weeks gestation of pregnancy; O24.420 Gestational diabetes mellitus in childbirth, diet controlled; Z11.59 Encounter for screening for other viral diseases; O99.284 Endocrine, nutritional and metabolic diseases complicating childbirth; E03.9 Hypothyroidism, unspecified; R42 Dizziness and giddiness; H53.8 Other visual disturbances; Z67.10 Type A blood, Rh positive
CPT/HCPCS: 80053; 85027; 86850; 86900; 86901; U0003; 59025; 82565; 84156; J3490

== ENCOUNTER 2020-11-11 16:42 | Outpatient (REF) | payer MEDICAID, SELFPAY ==
--- NOTE | 2020-11-11 16:15 | PAPFT_PTH ---
PATIENT: Libby Joseph LOC: N U#:[id number] AGE/SX: 30/F ROOM: RE11/11/[address]: Telma Chong DO : 1990 BED: DIS: 11/11/2020 SPEC #: [id number] RECD: 11/11/20 18:23 STATUS: ARNIE REQ #: [id number] TUNDE: 11/11/20 16:[address]: Telma Chong DEPT: [facility] Cytology RECD BY: Mindy Muir ENTERED: 11/11/20 18:23 SP TYPE: PAPFT OTHR DR: Justin Breaux Tissues: 1 - CX/ENDOCX FOR PAP SMEARS Procedures: PAP THIN PREP/UVM Screening Comments: [id number]
== END 2020-11-11 17:02 ==
LOC: LBN 16:42
PROVIDERS: PCP Family Medicine; Visit Provider Obstetrics & Gynecology
DX: Z12.4 Encounter for screening for malignant neoplasm of cervix (principal)
CPT/HCPCS: 88142

== ENCOUNTER 2021-01-12 09:00 | Day surgery (SDC) | payer MEDICAID, SELFPAY ==
--- NOTE | 2021-01-11 20:20 | HPE_ITS ---
Date of service: 01/12/21 Time of Service: 09:00 Assessment and Plan Assessment and plan (1) Hx laparoscopic cholecystectomy: Status: Resolved (2) RUQ pain: Status: Acute (3) Nausea and vomiting: Status: Acute Assessment and plan: Informed consent is obtained for the procedural (explained in simple layman's terms that the pt and/or family could understand) explaining risks vs benefits and alternatives to the procedure and consequences if we do not do the procedure and need/rational for the procedure. Risks include but are not limited to: bleeding, infection, perforation of esophagus, stomach, colon, small intestines, bronchus or trachea, or PTX. This would necessitate emergency surgery to repair the damage w/ possible ostomy; and other associated complications w/ the required surgery. Also complications of anesthesia including aspiration, AZ/CVA/. (4) Gestational diabetes: Status: Acute (5) Gestational hypertension: Status: Acute Qualifiers: Trimester: third trimester Qualified Code(s): O13.3 - Gestational [-induced] hypertension without significant proteinuria, third trime ster (6) Unsatisfactory cervical Papanicolaou smear: Status: Acute (7) Hypothyroid: Status: Chronic History of Present Illness Narrative: Patient has been having problems with right upper quadrant pain that radiates around to her back. This started when she became . She feels like her whole abdomen is sore and swollen. She has a lot of intense nausea. The nausea makes her anxious and then she cannot function. She has been living off of [facility]. This started with her recent . She had a ultrasound at [place] which showed gallstones and under she underwent lap dario down at [facility]. She was 20 weeks at the time. Her path report showed no stones and a normal gallbladder. Her surgeon commented in the op report that there were a lot of omental obstructions at the time of surgery. Since she had her gallbladder out she has been feeling the same. She has been under a lot of stress recently and started on bupropion. She had taken in the past without a problem. Her anxiety is worse and 2 weeks ago the bupropion dose was increased. Since that time nausea has gotten worse. She has been on omeprazole for 2 weeks and she does not feel like it is helped. She feels like it is a gas pain. Gas-X helps. She was in the ED. The ED did x-rays that showed she was constipated and started her on MiraLAX for constipation. She takes a daily. She says she is moving her bowels daily, and she is not straining to go to the bathroom. She is not noticed any blood in her stools. Her weight has been stable. This is not helped with her nausea she has cut dairy and soy out of her diet because her son is having GI problems she is breast-feeding. She drinks no caffeine. She drinks no alcohol. She is not taking any NSAIDs. The only thing she drinks is decaffeinated herbal tea. She has anxiety and has PONV. . She otherwise had no problems with the anesthesia at [facility]. She is not a smoker. She was prescribed Levsin but did not want to take this. Her baby is 15 weeks old. She is breast-feeding. I believe she delivered the baby at [facility]. She is taking lorazepam regularly for anxiety . 01/12/21: She is here today for an EGD nothing has changed w/ her medications and health status. Patient was supposed to have her TSH checked prior to this appointment. She did not go have blood work that had been previously ordered for her. Her TSH was checked today in same-day surgery (ordered by anesthesia) and her TSH was 142. Anesthesia canceled the case. Patient is referred back to her PCP at [facility] to get her thyroid regulated. Review of Systems All systems reviewed & are unremarkable except as noted in HPI and below PFSH Medical History Anxiety Cholelithiasis Encounter for induction of labor Encounter for supervision of other normal , second trimester Gestational diabetes Not requiring treatment. Gestational hypertension High-risk in third trimester Hypothyroid Nausea and vomiting Positive test RUQ pain Seizure disorder as child age 15/14 tx w/ meds d/c'd @ age 19. none again until labor with 2nd l&d. Unsatisfactory cervical Papanicolaou smear Unsat pap 03/09/20 - repeat at 6 wks PP Surgical History History of laparoscopy removal of endometriosis, day [facility] w/o c/o. Hx laparoscopic cholecystectomy during 2019. Family History Father Diabetes Heart disease Mother Migraine Maternal Grandmother Diabetes Maternal Grandfather Heart disease Colon cancer Hypertension Social History Smoking/Tobacco Use Status: Never Second Hand Exposure: No Smoking risk assessment performed?: Yes Alcohol Intake: never Drug use: Never Do you feel safe at home: Yes Do you feel safe in your relationship?: Yes History History 3 Para 3 Hx # Term Pregnancies 3 Multiple births 0 Hx # Pregnancies 0 Ectopic pregnancies 0 AB induced 0 Hx Number of Living Children 3 AB spontaneous Past Pregnancies Del. Date GA/Weeks # Outcome Route Wgt Sex Labor Lgth Anesthes ia Location [facility] 09/10/11 40 No Successful vaginal 3430.292 g Male iol for pre-e. re [facility] 04/13/14 38 No Successful vaginal 3685.438 g Female x 5hrs [facility] 09/12/20 37 No Successful vaginal 3163.[address] [facility] Delivery Date: 09/10/11 iol for pre-e, x 2 days. w/o c/o. MARILU[facility] TUCKER Delivery Date: 04/13/14 rom w/ ucs yet augmentation was recommended. Tachysystole then pitocin d/c'd Vacuum caused significant abrasion thus ointment needed & tylenol. ? seizure activity tx. w/ observation and [facility] nicu x3 days on eeg monitor then d/c to home. no meds. MARILUZ TUCKER Delivery Date: 09/12/20 Ralf Schultz; Induced, Gestational Hypertension Telma Umana Meds Home Medications and Allergies Allergies Allergy/AdvReac Type Severity Reaction Status Date / Time No Known Allergies Allergy Verified 12/28/20 10:23 Home Medications Medication Instructions Recorded Confirmed Type lorazepam 1 mg tablet 1 mg PO DAILY PRN 01/17/20 01/11/21 History prenat.vits,marisa,[id number] 1 tab PO DAILY 01/29/20 01/11/21 History promethazine 25 mg tablet 25 mg PO QID PRN #30 tab 02/05/20 01/11/21 Rx levothyroxine 150 mcg tablet 150 mcg PO DAILY #90 tab 08/27/20 11/11/20 Rx ondansetron HCl 4 mg tablet 4 mg PO Q6H #90 tab 11/11/20 01/11/21 Rx simethicone 125 mg chewable tablet 125 mg PO BID-QID PRN #90 tab 11/11/20 01/11/21 Rx bupropion HCl 300 mg 24 hr tablet, 300 mg PO QAM 12/28/20 01/11/21 History extended release hyoscyamine sulfate 0.125 mg tablet 0.125 mg PO BID-QID PRN 12/28/20 01/11/21 History pantoprazole 40 mg tablet,delayed 40 mg PO DAILY #30 tab 12/28/20 01/11/21 Rx release Exam Resp Effort & Inspection: normal respiratory effort and able to speak in complete sentences Auscultation: clear to auscultation bilaterally Cardio Rate: regular rate Rhythm: regular rhythm GI Inspection: incision Palpation: soft, no hepatosplenomegaly, no hernias and No ascites Auscultation: normal bowel sounds COVID-19 Screening Have you, or household traveled for leisure in last 14 days?: No Had IN PERSON contact w/suspected or confirmed C-19 person: No
[2021-01-12 09:30] VITALS: BP 121/81; PULSE 70; RESP 16; TEMP 36.3; O2SAT 100
[2021-01-12] MEDS: Lactated Ringers 1,000 ML 80 ML IV (10:00)
[2021-01-12 12:35] LABS: FREE T4 0.18 ng/dL (0.76-1.46); TSH (W/Ref FT4) 141.76 uIU/mL (0.36-3.74)
== END 2021-01-12 09:01 | disposition home or self-care (01) ==
LOC: SUR 13:00
PROVIDERS: PCP Family Medicine; Visit Provider Surgery
DX: R10.11 Right upper quadrant pain (principal); R11.2 Nausea with vomiting, unspecified; Z53.09 Procedure and treatment not carried out because of other contraindication; E03.9 Hypothyroidism, unspecified; Z90.49 Acquired absence of other specified parts of digestive tract
CPT/HCPCS: 81025; 99221; 84439; 84443

== ENCOUNTER 2022-04-05 10:43 | Emergency (ER) | payer MEDICAID, SELFPAY ==
[2022-04-05 10:48] VITALS: BP 120/93; PULSE 103; RESP 18; TEMP 36.8; O2SAT 99
--- NOTE | 2022-04-05 11:15 | RT.EKG_ITS ---
APPROVED REPORT Exam: Resting ECG Reason for Exam: chest tightness Patient Location: E HR:97 bpm ECG Measurements Heart Rate 97 AXIS DC 164 P 32 QRSd 84 QRS 19 QT 336 T 15 QTc 427 Conclusion Sinus rhythm...normal P axis, V-rate 60- 99
--- NOTE | 2022-04-05 11:54 | W.ED.GENAD ---
Discharge Plan Disposition Patient Disposition: HOME Condition: Stable Discharge Details Clinical Impression: Pneumonia Primary Care Provider: Justin Breaux ED Provider: Osiris Jane Home Meds and New Rx's Prescriptions: New doxycycline hyclate 100 mg tablet 100 mg PO BID 7 Days Qty: 14 0RF promethazine 6.25 mg/5 mL syrup 6.25 mg PO QHS MDD 10 ml PRN (Reason: sleep) 5 Days Qty: 473 0RF Rx Instructions: Take once at bedtime for cough and sleep No Action ondansetron HCl 4 mg tablet 4 mg PO Q6H Qty: 90 2RF lorazepam 1 mg tablet 1 mg PO DAILY PRN bupropion HCl [Wellbutrin XL] 300 mg tablet extended release 24 hr 300 mg PO QAM hyoscyamine sulfate 0.125 mg tablet 0.125 mg PO BID-QID PRN levothyroxine [Euthyrox] 150 mcg tablet 100 mcg PO DAILY Discharge Instructions Instructions: Pneumonia (ED) Additional Instructions: At this time there is a possibility that he may have a small right lower lobe pneumonia. Please take the antibiotics as directed. You may take the Phenergan syrup which was sent to the pharmacy on file to help you sleep at night or you may take an [id number] sleep and cough medication. Please take these medications as directed. Follow up with primary care provider in 3-5 days. Return to ED sooner if any worsening or concerns. Increase oral fluids. Please take Tylenol or Ibuprofen with food every 4-6 hours as needed for pain and swelling. Stand Alone Forms: Work Release Referrals: Justin Breaux [Primary Care Provider] - 5 days Discharge Data Discharge Date/Time-TO BE ENTERED AT DEPARTURE: 04/05/22 14:36 Medical Decision Making 32-year-old female presents to the ER with chief complaint of productive cough for the last 3, she reports productive of creamy brown phlegm. She has had 3 negative home COVID test. She also reports headache back to the chest tightness. She denies being a smoker no drugs or alcohol. She does have a past medical history of hypothyroidism, cholelithiasis, tachycardia, anxiety and seizure disorder. On initial exam she has diminished lung sounds bilaterally, rhonchi and congested cough noted. No wheezes. EKG performed in triage. EKG was reviewed by myself and Dr. Flores ER attending, please see his official report, sinus tachycardia no ectopy no old EKG available for review. Will order a Albuterol DuoNeb, lab, Fluvid swab, chest x-ray. Differential diagnosis includes but not limited to COVID, pneumonia, bronchitis, asthma, URI Labs noted below initial troponin within normal limits, no leukocytosis slightly elevated lymphocytes, Medical Records Medical records reviewed: Yes I reviewed the patient's medical records. Lab Data Lab results reviewed: Yes I reviewed the patient's lab results. Labs: Laboratory Tests Range/Units 04/05/22 04/05/22 04/05/22 12:20 12:40 12:40 WBC (4.4-10.8) 10^3/uL 10.15 RBC (3.93-5.22) 10^6/uL 4.76 Hgb (11.2-15.7) g/dL 14.0 Hct (36.0-46.0) % 42.6 MCV (80-95) fL 90 MCH (27.0-33.0) pg 29.4 MCHC (32.0-36.0) % 32.9 RDW (11.7-14.6) % 12.4 Plt Count (130-400) 10^3/uL 221 MPV (8.0-11.0) fL 11.0 Immature Gran % 0.3 Neutrophils % 69.0 Lymphocytes % 22.6 Monocytes % 5.7 Eosinophils % 2.1 Basophils % 0.3 Nucleated RBC % (0.0-0.3) % 0.0 Absolute Neutrophils (1.2-6.7) 10^3/uL 7.01 H Absolute Lymphocytes (1.2-3.4) 10^3/uL 2.29 Absolute Monocytes (0.1-0.8) 10^3/uL 0.58 Absolute Eosinophils (0.0-0.7) 10^3/uL 0.21 Absolute Basophils (0.0-0.2) 10^3/uL 0.03 Sodium (136-145) mmol/L 136 Potassium (3.5-5.1) mmol/L 3.9 Chloride (98-107) mmol/L 101 Carbon Dioxide (21.0-32.0) mmol/L 27.2 Anion Gap (3-11) mmol/L 7.8 BUN (7-18) mg/dL 12 Creatinine (0.55-1.02) mg/dL 0.9 Estimated GFR/1.73 m2 (mL/min/1.73m2) >= 60.00 Glucose (74-106) mg/dL 90 Calcium (8.5-10.1) mg/dL 8.9 Total Bilirubin (0.2-1.0) mg/dL 0.4 AST (15-37) U/L 22 ALT (14-59) U/L 27 Alkaline Phosphatase (46-116) U/L 99 Troponin I (<or=60) ng/L Total Protein (6.4-8.2) g/dL 8.3 H Albumin (3.4-5.0) g/dL 4.1 COVID-19 Source Not Applicable SARS-CoV-2 (PCR) (Negative) Negative Influenza Type A (PCR) (Negative) Negative Influenza Type B (PCR) (Negative) Negative RSV (PCR) (Negative) Negative Range/Units 04/05/22 12:40 WBC (4.4-10.8) 10^3/uL RBC (3.93-5.22) 10^6/uL Hgb (11.2-15.7) g/dL Hct (36.0-46.0) % MCV (80-95) fL MCH (27.0-33.0) pg MCHC (32.0-36.0) % RDW (11.7-14.6) % Plt Count (130-400) 10^3/uL MPV (8.0-11.0) fL Immature Gran % Neutrophils % Lymphocytes % Monocytes % Eosinophils % Basophils % Nucleated RBC % (0.0-0.3) % Absolute Neutrophils (1.2-6.7) 10^3/uL Absolute Lymphocytes (1.2-3.4) 10^3/uL Absolute Monocytes (0.1-0.8) 10^3/uL Absolute Eosinophils (0.0-0.7) 10^3/uL Absolute Basophils (0.0-0.2) 10^3/uL Sodium (136-145) mmol/L Potassium (3.5-5.1) mmol/L Chloride (98-107) mmol/L Carbon Dioxide (21.0-32.0) mmol/L Anion Gap (3-11) mmol/L BUN (7-18) mg/dL Creatinine (0.55-1.02) mg/dL Estimated GFR/1.73 m2 (mL/min/1.73m2) Glucose (74-106) mg/dL Calcium (8.5-10.1) mg/dL Total Bilirubin (0.2-1.0) mg/dL AST (15-37) U/L ALT (14-59) U/L Alkaline Phosphatase (46-116) U/L Troponin I (<or=60) ng/L < 50 Total Protein (6.4-8.2) g/dL Albumin (3.4-5.0) g/dL COVID-19 Source SARS-CoV-2 (PCR) (Negative) Influenza Type A (PCR) (Negative) Influenza Type B (PCR) (Negative) RSV (PCR) (Negative) HPI General Mode of arrival: ambulatory. Date/Time Provider Initiated Documentation: 04/05/22 11:36. Limitations to Documentation: no limitations. Information obtained by: patient, RN notes reviewed and old records reviewed. HPI Narrative: 32-year-old female presents to the ER with chief complaint of productive cough for the last 3, she reports productive of creamy brown phlegm. She has had 3 negative home COVID test. She also reports headache back to the chest tightness. She denies being a smoker no drugs or alcohol. She does have a past medical history of hypothyroidism, cholelithiasis, tachycardia, anxiety and seizure disorder. On initial exam she has diminished lung sounds bilaterally, rhonchi and congested cough noted. No wheezes. Related Data Home Medications Medication Instructions Recorded Confirmed lorazepam 1 mg tablet 1 mg PO DAILY PRN 01/17/20 04/05/22 ondansetron HCl 4 mg tablet 4 mg PO Q6H #90 tabs 11/11/20 04/05/22 bupropion HCl 300 mg 24 hr tablet, 300 mg PO QAM 12/28/20 01/11/21 extended release (Wellbutrin XL) hyoscyamine sulfate 0.125 mg tablet 0.125 mg PO BID-QID PRN 12/28/20 01/11/21 doxycycline hyclate 100 mg tablet 100 mg PO BID 7 days #14 tabs 04/05/22 levothyroxine 150 mcg tablet 100 mcg PO DAILY 04/05/22 04/05/22 (Euthyrox) promethazine 6.25 mg/5 mL oral 6.25 mg (5 mL) PO QHS PRN sleep 5 04/05/22 syrup days #473 mL Previous Rx's Medication Instructions Recorded ondansetron HCl 4 mg tablet 4 mg PO Q6H #90 tabs 11/11/20 doxycycline hyclate 100 mg tablet 100 mg PO BID 7 days #14 tabs 04/05/22 promethazine 6.25 mg/5 mL oral 6.25 mg (5 mL) PO QHS PRN sleep 5 04/05/22 syrup days #473 mL Allergies Allergy/AdvReac Type Severity Reaction Status Date / Time No Known Allergies Allergy Verified 04/05/22 10:57 General Stated Complaint: RespSymp RAMIRO: 3 Review of Systems All systems reviewed & are unremarkable except as noted in HPI and below Respiratory Respiratory: Reports change in phlegm color, Reports chest congestion, Reports cough and Denies excessive phlegm production PFSH All Active Problems (Updated 04/05/22 @ 14:18 by Osiris Jane) Pneumonia (Acute) RUQ pain (Acute) Nausea and vomiting (Acute) Encounter for insertion of mirena IUD (Acute) Positive test (Acute) Encounter for supervision of other normal , second trimester (Acute) Encounter for induction of labor (Acute) Gestational diabetes (Acute) Not requiring treatment. Hx of vaginal delivery (Acute) 09/12/20. SVD. [place]. [id number]. Gestational hypertension (Acute) High-risk in third trimester (Acute) Unsatisfactory cervical Papanicolaou smear (Acute) Unsat pap 03/09/20 - repeat at 6 wks PP Hypothyroid (Chronic) Cholelithiasis (Acute) Hypothyroid (Chronic) (Acute) Tachycardia (Acute) 01/17/20 Has lunchroom monitor on for this month Medical History Anxiety Seizure disorder as child age 15/14 tx w/ meds d/c'd @ age 19. none again until labor with 2nd l&d. Surgical History History of laparoscopy removal of endometriosis, day surgery @ [facility] w/o c/o. Family History Father Diabetes Heart disease Mother Migraine Maternal Grandmother Diabetes Maternal Grandfather Heart disease Colon cancer Hypertension Social History Smoking/Tobacco Use Status: Never Second Hand Exposure: No Smoking risk assessment performed?: Yes Alcohol Intake: never Drug use: Never Do you feel safe at home: Yes Do you feel safe in your relationship?: Yes History History 3 Para 3 Hx # Term Pregnancies 3 Multiple births 0 Hx # Pregnancies 0 Ectopic pregnancies 0 AB induced 0 Hx Number of Living Children 3 AB spontaneous Past Pregnancies Del. Date GA/Weeks # Outcome Route Wgt Sex Labor Lgth Anesthesia Location [facility] Compl 09/10/11 40 No Successful vaginal 3430.292 g Male iol for pre-e. [facility] 04/13/14 38 No Successful vaginal 3685.438 g Female x 5hrs [facility] 09/12/20 37 No Successful [facility] 3163.807 [facility]: [facility]11 Last Updated by: Humberto Roberson CNM iol for pre-e, x 2 days. w/o c/o. Delivery Date: 04/13/14 Last Updated by: Humberto Roberson CNM rom w/ ucs yet augmentation was recommended. Tachysystole then pitocin d/c'd Vacuum caused significant abrasion thus ointment needed & tylenol. ? seizure activity tx. w/ observation and [facility] nicu x3 days on eeg monitor then d/c to home. no meds. Delivery Date: 09/12/20 Last Updated by: PEYTON Bennett; Induced, Gestational Hypertension Exam Narrative Exam Narrative: Constitutional: Alert and oriented x3. Appears stated age. Normal body habitus. Head: Normocephalic, no trauma. Eyes: Pupils PERRL, Red reflex noted, EOM's intact. Eyelids symmetrical without lesions, discharge, or swelling. ENT: Bilateral TM's WNL, External ear normal to inspection, no mastoid TTP, swelling, or erythema, Nasal turbinates WNL, no nasal discharge. Normal dentition, Posterior pharynx WNL, no exudate. Chest: RRR, Normal S1, S2, distal pulses intact. Resp: Lungs have rhonchi bilaterally to auscultation bilaterally, no wheezes, Abdomen: Soft, non-distended, Normoactive bowel sounds all 4 quads. Musculoskeletal: Normal gait, 5/5 strength to all four extremities. Skin: No suspicious rashes or lesions. Capillary refill less than 2 sec. Neurologic: Cranial nerves II-XII intact. Alert and oriented x 3. Motor: No deficits noted. Sensory: Intact bilaterally all 4 extremities. Reflexes: DTR's intact bilaterally.. Hematologic/Lymphatic: No ecchymosis, no lymphadenopathy. Course Vital Signs Vital signs: Vital Signs Temperature 36.8 C 04/05/22 10:48 Pulse 103 H 04/05/22 10:48 Respiratory Rate 18 04/05/22 10:48 Blood Pressure 120/93 H 04/05/22 10:48 Pulse Oximetry 99 04/05/22 10:48 Temperature 36.8 C 04/05/22 10:48 Temperature Source Skin 04/05/22 10:48 Pulse 103 H 04/05/22 10:48 Respiratory Rate 18 04/05/22 10:48 Respiratory Effort 04/05/22 11:01 Blood Pressure 120/93 H 04/05/22 10:48 Blood Pressure Position Sitting 04/05/22 10:48 Pulse Oximetry 99 04/05/22 10:48 Oxygen Delivery Method Room Air 04/05/22 10:48 Oxygen Flow Rate 0 04/05/22 10:48 Pain Level 6 04/05/22 10:48
[2022-04-05] MEDS: Normal Saline 500 ML IV (12:46)
[2022-04-05 12:48] LABS: Abs Immature Grans 0.03 10^3/uL (0.0-0.06); Absolute Basophil Count 0.03 10^3/uL (0.0-0.2); Absolute Eosinophil Count 0.21 10^3/uL (0.0-0.7); Absolute Lymphocyte Count 2.29 10^3/uL (1.2-3.4); Absolute Monocyte Count 0.58 10^3/uL (0.1-0.8); Absolute Neutrophil Count 7.01 10^3/uL (1.2-6.7); Basophils % 0.3; Eosinophils % 2.1; HCT 42.6 % (36.0-46.0); Immature Grans % 0.3; Lymphocytes % 22.6; MCH 29.4 pg (27.0-33.0); MCHC 32.9 % (32.0-36.0); MCV 90 fL (80-95); Monocytes % 5.7; Platelet Count 221 10^3/uL (130-400); RBC 4.76 10^6/uL (3.93-5.22); RDW 12.4 % (11.7-14.6); RDW-SD 41.2 fL; WBC 10.15 10^3/uL (4.4-10.8)
--- NOTE | 2022-04-05 12:50 | DI.RAD_ITS ---
Exam(s) XR PORTABLE CHEST AP EXAM: XR PORTABLE CHEST AP CLINICAL HISTORY: Productive cough R/O PNA. TECHNIQUE: 2D digital imaging was performed. COMPARISON: No exams were available for comparison FINDINGS: Single AP portable view. Heart size is upper normal. The mediastinum is not widened. Left lung is clear. Slightly increased markings in the right lung base noted. These may be crowding vascular markings but cannot exclude infiltrate. There are no pleural effusions. No pulmonary edinson a. IMPRESSION: Right lung base findings as described above. Recommend nonportable PA and lateral views when clinica lly possible. DATA REPOSITORY: RADIATION DOSE DELIVERED: All CT scans at this facility use at least one of these dose optimization techniques: automated exposure control; mA and/or kV adjustment per patient size (includes targeted e xams where dose is matched to clinical indication); or iterative reconstruction.
[2022-04-05] MEDS: Albuterol/Ipratropium 3 ML UPD VIAL UPD (12:51)
[2022-04-05 13:02] LABS: ALT 27 U/L (14-59); AST 22 U/L (15-37); Albumin 4.1 g/dL (3.4-5.0); Alkaline Phosphatase 99 U/L (46-116); Anion Gap 7.8 mmol/L (3-11); BUN 12 mg/dL (7-18); Bilirubin, Total 0.4 mg/dL (0.2-1.0); CO2 27.2 mmol/L (21.0-32.0); CREATININE 0.9 mg/dL (0.55-1.02); Calcium 8.9 mg/dL (8.5-10.1); Chloride 101 mmol/L (98-107); Glucose 90 mg/dL (74-106); Potassium 3.9 mmol/L (3.5-5.1); Sodium 136 mmol/L (136-145); Total Protein 8.3 g/dL (6.4-8.2)
[2022-04-05 13:05] LABS: COVID-19 PCR Negative (Negative); Influenza A PCR Negative (Negative); Influenza B PCR Negative (Negative); RSV PCR Negative (Negative)
[2022-04-05 13:10] LABS: Troponin I < 50 ng/L (<or=60)
[2022-04-05] MEDS: Ketorolac 15 MG/ML VIAL IVP (13:19)
--- NOTE | 2022-04-05 13:36 | DI.RAD_ITS ---
Exam(s) XR CHEST 1V IN DI DEPT EXAM: XR CHEST 1V IN DI DEPT CLINICAL HISTORY: Lateral view only, R/O PNA. TECHNIQUE: 2D digital imaging was performed. COMPARISON: CR XR PORTABLE CHEST AP from 04/05/2022 FINDINGS: Single lateral view. This additional view there appears to be infiltrate projected over the heart and most probably corres ponds to finding on the AP view earlier today. Probably infiltrate. There are no pleural effusions IMPRESSION: Infiltrate, as described above.. I presume that this is in the right middle lobe, This patient should have an upright nonportable PA view for correlation. DATA REPOSITORY: RADIATION DOSE DELIVERED: All CT scans at this facility use at least one of these dose optimization techniques: automated exposure control; mA and/or kV adjustment per patient size (includes targeted e xams where dose is matched to clinical indication); or iterative reconstruction.
[2022-04-05 14:31] VITALS: BP 115/75; PULSE 106; RESP 16; TEMP 36.4; O2SAT 99
== END 2022-04-05 14:36 | disposition home or self-care (01) ==
PROVIDERS: Emergency Provider Registered Nurse Emergency; PCP Family Medicine
DX: J18.9 Pneumonia, unspecified organism (principal); R07.89 Other chest pain
CPT/HCPCS: 36415; 80053; 81025; 87637; 93005; 96361; 96374; 99284; 71045; 84484; 85025; 93010; J1885; J7620

== ENCOUNTER 2023-11-27 16:03 | Outpatient (REF) | payer OTHER, MEDICAID, SELFPAY ==
[2023-11-29 12:47] LABS: Chlamydia Result Negative (Negative); GC Result Negative (Negative)
== END 2023-11-27 16:04 | disposition home or self-care (01) ==
LOC: LBN 16:03
PROVIDERS: PCP Family Medicine; Visit Provider Obstetrics & Gynecology Gynecology
DX: R10.2 Pelvic and perineal pain (principal)
CPT/HCPCS: 87491; 87591

== ENCOUNTER 2024-08-25 15:26 | Emergency (ER) | payer OTHER, SELFPAY ==
[2024-08-25 15:31] VITALS: BP 132/90; PULSE 83; RESP 14; TEMP 36.6; O2SAT 98
== END 2024-08-25 17:38 | disposition left against medical advice (07) ==
LOC: ER 15:48
PROVIDERS: PCP Family Medicine
DX: Z53.21 Procedure and treatment not carried out due to patient leaving prior to being seen by health care provider (principal)

== ENCOUNTER 2025-08-18 10:50 | Outpatient (REF) | payer SELFPAY ==
[2025-08-19 14:09] LABS: Chlamydia Result Negative (Negative); GC Result Negative (Negative)
== END 2025-08-18 10:51 | disposition home or self-care (01) ==
LOC: LBN 10:50
PROVIDERS: PCP Family Medicine; Visit Provider Obstetrics & Gynecology
DX: N89.8 Other specified noninflammatory disorders of vagina (principal); Z11.3 Encounter for screening for infections with a predominantly sexual mode of transmission
CPT/HCPCS: 87491; 87591; 87480; 87510; 87660

== ENCOUNTER 2025-08-18 11:52 | Outpatient (CLI) | payer SELFPAY ==
[2025-08-19 10:13] LABS: HBs Antibody, Qual Positive (See Note); HBs Antibody, Quant 60.4 mIU/mL (See Note); Hepatitis C Ab w Rflx HCV PCR Negative (Negative)
[2025-08-19 10:27] LABS: HIV-1/2 Ag & Ab Screen Negative (Negative)
[2025-08-19 10:59] LABS: Syphilis Serology (RPR) Negative (Negative)
== END 2025-08-18 11:53 | disposition home or self-care (01) ==
LOC: LBO 11:53
PROVIDERS: PCP Family Medicine; Visit Provider Obstetrics & Gynecology
DX: Z11.3 Encounter for screening for infections with a predominantly sexual mode of transmission (principal)
CPT/HCPCS: 36415; 86704; 86706; 86803; 87340; 87389; 86592